=== PATIENT | female | born 1955 | race Caucasian/White ===

== ENCOUNTER 2017-04-27 13:54 | Emergency (ER) | payer OTHER ==
[~2017-04-27] VITALS: Ht 165.1 cm; Wt 90.7 kg
[~2017-04-27 13:54] MED LIST: BLM PO; CELEBREX200 MG PO; CLEOCIN HCL150 MG PO; FLEXERIL10 MG PO; FLU VACCINE 0.0.5 ML IM; GUAIFENESIN-COD10 ML PO; IBUPROFEN800 MG PO; MEDROL4 M2 PO; MELOXICAM15 MG PO; NOVAPLUS FE50 MCG/HR TOP; PROAIR HFA8.5 GM INH; TESSALON PERLE100 M1 PO; TORADOL10 MG PO; VICODIN5-300 PO; ZITHROMAX250 M2 PO; ZOFRAN 4 MG TABL4 MG PO; [UNRECOGNIZED DRUG - OTHER] PO
[2017-04-27 14:06] VITALS: BP 161/78
[2017-04-27] MEDS ORDERED: IBUPROFEN800 M1 PO (14:58)
[2017-04-27] MEDS ORDERED: NAPROSYN500 M1 PO (15:01)
--- NOTE | 2017-04-27 15:01 | ED GENERAL ADULT ---
History of Present Illness General Chief Complaint: Low Back Pain/Injury Stated Complaint: HIP/BACK PAIN Source: patient Exam Limitations: no limitations Vital Signs & Intake/Output Vital Signs & Intake/Output Vital Signs Date Time Temp Pulse Resp B/P B/P Pulse O2 O2 Flow FiO2 Mean Ox Delivery Rate 04/27 1406 97.1 85 16 161/78 97 Room Air Allergies Coded Allergies: Penicillins (Intermediate, FAINT, GI UPSET 12/25/15) Triage Note: PT STATES THAT SHE HAS CHRONIC LOW BACK AND HIP PAIN AND THAT SHE WAS AT PHYSICAL THERAPY AND THEY WERE TRYING TO STRETCH HER , AND THE LOW BACK L HIP PAIN BECAME UNBEARABLE. PT TAKES MOTRIN FOR PAIN WITH NO RELIEF. IS DUE TO HAVE INJECTIONS IN HER JOINTS IN BUT THE PAIN IS TO MUCH. STATES THAT SHE DOES NOT WANT NARCOTICS BUT NEEDS SOMETHING MORE THAN MOTRIN Triage Nurses Notes Reviewed? 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 Reports sharp left low back pain that radiates into the left hip/buttock/leg. Has been using ibuprofen without relief. Is managed by an orthopedic doctor out of [place] and is scheduled for back injections in June. Pt is requesting an IM dose of Toradol as she has had this with good effect in the past. Denies fevers, IV drug use, saddle anesthesias, urinary/bowel incontinence/retention. (EFREN GOODRICH,NEHEMIAS) Reconcile Medications Ibuprofen 800 MG TABLET 1 TAB PO BID PAIN (Reported) Naproxen (Naprosyn) 500 MG TABLET 1 TAB PO BID PRN back pain (FREDERICK HARTLEY,LATOYA) Past History Travel History Traveled to [place] past 21 day No Medical History Any Pertinent Medical History? 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 No (NEHEMIAS SCHWARTZ PA-C) Review of Systems Review of Systems Constitutional: Reports: no symptoms. EENTM: Reports: no symptoms. Respiratory: Reports: no symptoms. Cardiovascular: Reports: no symptoms. GI: Reports: no symptoms. Genitourinary: Reports: no symptoms. Musculoskeletal: Reports: back pain. Denies: neck pain. Skin: Reports: no symptoms. Neurological/Psychological: Reports: no symptoms. Hematologic/Endocrine: Reports: no symptoms. Immunologic/Allergic: Reports: no symptoms. (NEHEMIAS SCHWARTZ PA-C) Physical Exam Physical Exam General Appearance: well developed/nourished, no apparent distress, alert, awake , comfortable Head: atraumatic Eyes: Bilateral: normal appearance. Neck: normal inspection, supple, full range of motion, no midline tenderness Respiratory: normal breath sounds, lungs clear Cardiovascular: regular rate/rhythm, normal peripheral pulses Back: normal inspection, normal range of motion, no vertebral tenderness, tenderness to palpation over the left low back muscles, negative straight leg raise, bilateral lower extremities are NV intact Neurologic/Psych: no motor/sensory deficits, awake, alert, oriented x 3, normal gait, normal mood/affect Skin: intact, normal color, warm/dry Core Measures ACS in differential dx? No CVA/TIA Diagnosis: No Severe Sepsis Present: No Septic Shock Present: No (NEHEMIAS SCHWARTZ PA-C) Progress Differential Diagnoses I considered the following diagnoses in my evaluation of the patient: [Sciatica versus disc herniation versus musculoskeletal strain versus cauda equina versus abscess] Plan of Care: Current Medications Sig/Mary Start time Last Medication Dose Stop Time Status Admin Ketorolac 60 MG ONCE ONE 04/27 1500 AC Tromethamine 04/27 1501 (Toradol) IM Toradol and discharged with Rx naproxen. Instructed to follow-up with her orthopedic doctor for further evaluation. (NEHEMIAS SCHWARTZ PA-C) Initial ED EKG: none (NEHEMIAS SCHWARTZ PA-C) Departure Departure Disposition: HOME OR SELF CARE Condition: Stable Clinical Impression Primary Impression: Low back pain Referrals: GEM HARTLEY,KADIE Felix (PCP/Family) Additional Instructions: Take 500 mg of naproxen twice a day with meals as needed for back pain. Follow- up with your orthopedic doctor as scheduled. Return to the ER for any new or worsening symptoms. Departure Forms: Customer Survey General Discharge Information (EFREN GOODRICH,NEHEMIAS) Departure Prescriptions: Current Visit Scripts Naproxen (Naprosyn) 1 TAB PO BID PRN back pain #60 TAB PA/[employer] Co-Sign Statement Statement: ED Attending supervision documentation- [] I saw and evaluated the patient. I have also reviewed all the pertinent lab results and diagnostic results. I agree with the findings and the plan of care as documented in the PA's/[employer]'s documentation. [X] I have reviewed the ED Record and agree with the PA's/[employer]'s documentation. [] Additions or exceptions (if any) to the PAs/[employer]'s note and plan are summarized below: [] (FREDERICK HARTLEY,LATOYA) Critical Care Note Critical Care Note Critical Care Time: non-applicable (EFREN GOODRICH,NEHEMIAS)
== END 2017-04-27 15:09 ==
LOC: ERH 13:54
DX: M54.5 Low back pain (principal)
CPT/HCPCS: 96372; J1885

== ENCOUNTER 2017-11-14 02:46 | Inpatient (IN) | payer OTHER ==
[~2017-11-14] VITALS: Ht 165.1 cm; Wt 109.8 kg
[~2017-11-14 02:46] MED LIST changes: +CALCIUM600 M3 PO; +CIPRO500 M1 PO; +DULOXETINE HCL30 MG; +HYDROMORPHONE HC2 M1 PO; +IBUPROFEN800 M1 PO; +IRON325 M3 PO; +MAGNESIUM500 M2 PO; +NAPROSYN500 M1 PO; +PYRIDIUM200 M1 PO; +TURMERIC500 M2 PO; +VITAMIN D250000 UNIT PO; +[UNRECOGNIZED DRUG - OTHER] PO
--- NOTE | 2017-11-14 13:38 | Admission Core Measures ---
Acute Coronary Syndrome (CM) ACS Core Measures Acute Coronary Syndrome Diagnosis No Congestive Heart Failure (NEW) CHF Core Measures Congestive Heart Failure Diagnosis No Cerebrovascular Accident (NEW) CVA Core Measures CVA/TIA Diagnosis No Venous Thromboembolism VTE Core Dahlia (View Protocol) VTE Risk Factors Surgery No Mechanical VTE Prophylaxis d/t N/A MechProphylax Ordered No VTE Pharm Prophylaxis d/t NA PharmProphylax ordered Problem List As ranked by this Provider includes Assessment & Plan 1. Unilateral primary osteoarthritis, left hip 2. Status post total hip replacement, left HOME MEDS Home Med List Calcium (Elemental-Fr Calcarb) (Calcium) (Unknown Strength) TABLET (Unknown Dose) PO EOD SUPPLEMENT (Reported) Ergocalciferol (Vitamin D2) (Vitamin D2) 50,000 UNIT CAPSULE 1 CAP PO QFRI SUPPLEMENT (Reported) Ferrous Sulfate (IRON) (Unknown Strength) TABLET (Unknown Dose) PO AD SUPPLEMENT (Reported) Hydromorphone HCl 2 MG TABLET 1 TAB PO 4 TIMES/DAY PRN PAIN (Reported) Ibuprofen 800 MG TABLET 1 TAB PO TID PRN PAIN/INFLAMMATION (Reported) [IMMUNE SUPPLEMENT] (Unknown Strength) (Unknown Dose) PO EOD SUPPLEMENT ( Reported) Magnesium Oxide (Magnesium) (Unknown Strength) CAPSULE (Unknown Dose) PO EOD SUPPLEMENT (Reported) Turmeric Root Extract (Turmeric) (Unknown Strength) CAPSULE (Unknown Dose) PO EOD SUPPLEMENT (Reported)
--- NOTE | 2017-11-14 13:45 | Surgical Discharge Summary ---
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 Family Services at Home: None What is Your Primary Language? Serbian Review of Systems: Refer to H&P Hospital Course Course Attending Physician: Adolph Smith MD Primary Care Physician: Gloria HARTLEY,Kenia Felix Hospital Course: Patient was admitted to the hospital for an elective left total hip replacement with Dr. Smith. Procedure was tolerated well and patient was transferred to a general surgical floor. Diet was advanced and tolerated. Physical therapy performed evaluation and treatment. At time of hospital discharge, vital signs were stable, neurovascular status was intact and pain was controlled with the use of oral pain medications. Complications: None Allergies: Coded Allergies: nickel (RASH 11/10/17) Penicillins (Intermediate, FAINTED, VOMITING AND HOSPITALIZED 08/18/17) Significant Procedures: Left total hip replacement on 11/14/17 Disposition Summary Disposition Principal Diagnosis: Primary osteoarthritis, left hip Additional Diagnosis: Same s/p left total hip replacement Discharge Disposition: SNF Discharge Instructions General Discharge Information Code Status: Full Code Patient's Diet: Regular diet Patient's Activity: WBAT, rolling walker assistance Follow-Up Instructions/Appts: 6 weeks with staple removal around post-op day#14 Medications at Discharge Discharge Medications: Stop taking the following medications: Hydromorphone HCl (Hydromorphone HCl) 2 MG TABLET ORAL 4 TIMES A DAY as needed for PAIN Qty = 30 Ibuprofen (Ibuprofen) 800 MG TABLET ORAL THREE TIMES DAILY as needed for PAIN/ INFLAMMATION Qty = 90 Continue taking these medications: Ergocalciferol (Vitamin D2) (Vitamin D2) 50,000 UNIT CAPSULE 1 Capsule ORAL EVERY SUNDAY Qty = 6 Calcium (Elemental-Fr Calcarb) (Calcium) (Unknown Strength) TABLET Unknown Dose ORAL Every other day Magnesium Oxide (Magnesium) (Unknown Strength) CAPSULE Unknown Dose ORAL Every other day [IMMUNE SUPPLEMENT] (Unknown Strength) Unknown Dose ORAL Every other day Turmeric Root Extract (Turmeric) (Unknown Strength) CAPSULE Unknown Dose ORAL Every other day Ferrous Sulfate (IRON) (Unknown Strength) TABLET Unknown Dose ORAL As Directed Start taking the following new medications: Apixaban (Eliquis) 2.5 MG TABLET 2.5 Milligram ORAL TWICE DAILY Days = 42 No Refills Instructions: take for 6weeks Celecoxib (Celebrex) 200 MG CAPSULE 400 Milligram ORAL DAILY Days = 20 No Refills Hydromorphone HCl (Hydromorphone HCl) 2 MG TABLET 1-2 Tablet ORAL EVERY 4 HOURS NEEDED as needed for POSTOP PAIN Days = 3 No Refills Docusate Sodium (Docusate Sodium) 100 MG CAPSULE 100 Milligram ORAL TWICE DAILY Days = 7 No Refills Polyethylene Glycol 3350 (Miralax) 17 GRAM/DOSE POWDER 17 Gram ORAL DAILY as needed for CONSTIPATION Days = 7 No Refills Morphine Sulfate (Morphine Sulfate ER) 15 MG TABLET.ER 15 Milligram ORAL TWICE DAILY Qty = 4 No Refills Copies To: Gloria HARTLEY,Kenia Felix
--- NOTE | 2017-11-14 13:50 | Patient Discharge Instructions ---
Discharge Instructions General Discharge Information You were seen/treated for: Left hip pain, osteoarthritis You had these procedures: Left total hip replacement on 11/14/17 Watch for these problems: Increasing pain despite the use of pain medication Increasing redness, warmth or swelling Drainage of any type from incision Inability to bear weight on operative leg Persistent nausea and vomiting Fever greater than 101.5 degrees Call Surgeon to remove: Mariza (around post-op day#14) No bath, but you may shower: Yes Other wound care: Please keep wound clean and dry. No ointments or lotions of any type on or near incision. Your dressing will be changed on the second day after your surgery. Daily dry dressing changes are recommended each day thereafter. Do not soak your wound- no tub baths/swimming. You may shower 48hr after surgery. Special Instructions: Take Eliquis (apixaban) for 6 weeks to prevent postop blood clot formation. Diet Continue normal diet: Yes Activity Full Activity/No Limits: No Activity Self Limited: Yes Activity Limited to: Weight bear as tolerated Other activity limits: Use assistive devices as needed. Additional ACTIVITY Info: total hip precautions Acute Coronary Syndrome Inclusion Criteria At DC or during hospital stay patient has or had the following: ACS DIAGNOSIS No Discharge Core Measures Meds if any: Prescribed or Continued at Discharge Meds if any: NOT Prescribed or Continued at Discharge Congestive Heart Failure Inclusion Criteria At DC or during hospital stay patient has or had the following: CHF DIAGNOSIS No Discharge Core Measures Meds if any: Prescribed or Continued at Discharge Meds if any: NOT Prescribed or Continued at Discharge Cerebrovascular accident Inclusion Criteria At DC or during hospital stay patient has or had the following: CVA/TIA Diagnosis No Discharge Core Measures Meds if any: Prescribed or Continued at Discharge Meds if any: NOT Prescribed or Continued at Discharge Venous thromboembolism Inclusion Criteria VTE Diagnosis No VTE Type NONE VTE Confirmed by (Test) NONE Discharge Core Measures - Per Current guidelines, there needs to be overlap - treatment for the first 5 days of Warfarin therapy. - If discharged on Warfarin prior to 5 days of - overlap therapy, the patient will need to be - assessed for post discharge needs including - *Post discharge parental anticoagulation - *Warfarin and/or parental anticoagulation education - *Follow up date to check INR post discharge At least 5 days overlap therapy as Inpatient No Meds if any: Prescribed or Continued at Discharge Note: Overlap Therapy is Warfarin and Anticoagulant Meds if any: NOT Prescribed or Continued at Discharge
--- NOTE | 2017-11-14 14:58 | Operative Report ---
Operative/Inv Procedure Report Surgery Date: 11/14/17 Name of Procedure: Left Total hip arthroplasty Pre-Operative Diagnosis: Primary osteoarthritis left hip Post-Operative Diagnosis: Same Estimated Blood Loss: scant (250 CC) Surgeon/Administrative Assistant Office Manager: Vladimir Smith MD,Adolph Wong Anesthesia: general endotracheal tube IV Fluids: See anesthesia record Implants: Samantha total hip system with a Accolade 2 femoral stem size 7 with a 127 neck angle, a 54 acetabular shell. A 36 mm head 0 neck length Specimens: Left femoral head Complications: None Condition: Stable Operative Indication: Patient's a 62-year-old female with severe osteoarthritis of the left hip. She fail conservative treatment is indicated for left total hip arthroplasty. Risks and benefits the procedure were discussed with the patient detail in the office and she wished to proceed. Skilled set hands was necessary provided by physician medical records assistant Vladimir Manjarrez weighted with retraction and positioning component assembly throughout the case. Operative/Procedure Note Note: Once informed consent was obtained and the correct limb was identified patient brought to operative room placed on table supine position. After initiation of general endotracheal anesthesia patient placed in a right lateral decubitus position on the pegboard with an axillary roll in place and all bony prominences well-padded. A Gómez catheter had been placed. The left lower from his prepped and draped in usual sterile fashion. To begin the procedure standard incision for posterior superior approach to the hip was made. Sharp dissection was carried down through the skin and subcutaneous tissue. Sharp dissection was then used to split the gluteus soheila fascia in line with its bipennate junction fibers. To deep retractors were placed deep to the gluteus medius and around the femoral neck. The piriformis tendon was identified and released and tagged for later repair. Next the gluteus minimus was identified and a retractors placed deep to the gluteus minimus. A superior capsulotomy was performed and tagged for later repair. The hip was dislocated. A previous removed from the femoral neck and a femoral neck cut was made 1 fingerbreadth above the lesser trochanter. Femoral head was passed off as specimen. An anterior acetabular and inferior acetabular retractors were placed. Pulmonology removed from acetabulum. We then began reaming the acetabulum with a 45 reamer. We reamed sequentially up to a size 53 reamer. We trialed a 54 acetabular which was found to have an excellent fit. A size 54 acetabular shell was opened and placed into the acetabulum using a good press-fit technique. No screws were necessary for fixation. The liner for the total hip was opened and locked into place. Attention was then turned to the femur. The femur was placed in internal rotation and a box osteotome was used remove lateral femoral neck and into the femoral canal. Starting reamer was then placed on the femoral canal. We then began broaching with a 0 broach. We broached up to a size 7 broach. The size 7 broach was left in place and a trial reduction was done with a 36 mm head and standard neck length. Hip was relocated quite easily and taken through a range of motion hip was stable in 90 of flexion and 90 of flexion with 30 of internal rotation and 30 of abduction. Leg lengths are equal. Hip was redislocated and the components removed. The femoral canal was pulse lavaged and a size 7 Accolade 2 127 neck angle was opened and press-fit down the femoral canal without, patient. A standard neck length 36 mm head was opened and locked onto the component. The hip was relocated and taken through range of motion. Was found to be stable again. Next the superior capsule and piriformis were repaired back to the trochanter. Hip was pulse lavaged. The fascia was then closed with a running #1 looped PDS suture. The deep tissues were closed # 1 Vicryl inverted sutures and the subcutaneous tissues closed with 2-0 Vicryl sutures. The skin was closed anthony and sterile dressing was applied. The patient was awakened taken recovery in stable condition.
--- NOTE | 2017-11-14 15:48 | RADIOLOGY REPORT ---
EXAMINATION: XR HIP, LEFT CLINICAL INFORMATION: Left hip replacement. COMPARISON: None TECHNIQUE: An AP view of the left hip. FINDINGS: A left hip replacement is intact with expected subcutaneous gas. IMPRESSION: Intact left hip replacement with expected postoperative appearance.
[2017-11-14 16:25] VITALS: BP 152/68
--- NOTE | 2017-11-14 17:44 | PN- Orthopedic ---
Subjective Subjective: Post op check: Pt reporting burning sensation to incision site. Denies chest pain, shortness of breath and difficulty breathing. Denies nausea and vomitting. Has yet to ambulate. Objective Vital Signs and I&Os Vital Signs Date Time Temp Pulse Resp B/P B/P Pulse O2 O2 Flow FiO2 Mean Ox Delivery Rate 11/14 1625 97.7 62 16 152/68 100 Nasal 4.0L Cannula Physical Exam: General: Alert and oriented x3, no acute distress Cardiac: RRR, s1s2 Pulm: CTA bilaterally Abd: Soft, non-tender, non-distended Extremities: Moves all extremities, distal sensation intact. Skin warm and well perfused. DP pulses palpable. Bilaterla calves soft and non-tender. Surgical site: Left hip. Imani incisional tenderness. Thigh compartment soft. Dressing dry and intact. No drain in place. Assessment/Plan Assessment/Plan This is a 62 year old female, POD 0, s/p L THR, posterior approach -Abduction pillow in place -ALPS for dvt ppx mechanical -Eliquis 2.5 bid to start tomorrow am -OOB with PT, WBAT -Vanc q12 x 1 additional dose for abx ppx -Dressing to be changed POD 2 -Add atc offirmev for pain, encouraged RN to give po vs strictly iv narcotics, has dilaudid ordered -Regular diet as tolerated -HLIV when tolerating adequate po -DC monroy catheter tomorrow am Will discuss with Dr. Smith Core Measures Venous Thromboembolism VTE Risk Factors Surgery No Mechanical VTE Prophylaxis d/t N/A MechProphylax Ordered No VTE Pharm Prophylaxis d/t NA PharmProphylax ordered
[2017-11-14 18:47] VITALS: BP 130/70
[2017-11-14 20:00] VITALS: BP 142/70
[2017-11-15 00:30] VITALS: BP 144/54
[2017-11-15 04:21] VITALS: BP 134/58
[2017-11-15 08:00] VITALS: BP 146/62
--- NOTE | 2017-11-15 08:17 | PN- Orthopedic ---
Subjective Subjective: No acute overnight events reported. Pt states that pain is poorly controlled presently. She points to the latereal aspect of thigh from incision to knee as the most painful. She denies chest pain, shortness of breath and difficulty breathing. She denies nausean and vomitting. She is tolerating adequate po. She has yet to ambulate. She has monroy catheter in place still. Objective Vital Signs and I&Os Vital Signs Date Time Temp Pulse Resp B/P B/P Pulse O2 O2 Flow FiO2 Mean Ox Delivery Rate 11/15 0421 98.0 85 18 134/58 95 Nasal Cannula 11/15 0030 98.9 86 18 144/54 95 Nasal Cannula 11/15 0000 Nasal 2.0L Cannula 11/14 1999 98.2 71 19 142/70 97 Nasal 2.0L Cannula 11/14 1847 98.1 83 20 130/70 95 Nasal 2.0L Cannula 11/14 1625 Nasal 2.0L Cannula 11/14 1625 97.7 62 16 152/68 100 Nasal 4.0L Cannula Intake & Output 11/15 1600 11/15 0800 11/15 0000 11/14 1600 11/14 0800 11/14 0000 Intake Total 1135 Output Total 400 175 Balance 735 -175 Intake, IV 655 Intake, Oral 480 Number 0 Bowel Movements Output, Urine 400 175 Patient 242 lb Weight Physical Exam: Genereal: Alert and oriented x3, no acute distress Cardiac: RRR, s1s2 Pulm: CTA, on nasal cannula presently Abd: Non-tender, non-distneded Extremities: Moves all extremities, distal sensation grossly intact. Skin warm and well perfused. DP pulses palpable bialterlly. Abduction pillow in place. No obvious rotational deformity or shortening of operative leg. ALPS in place. Bilateral calves soft and nontennder. Dressing dry and intact. Bruising noted to thigh area, thigh compartment remains soft. Assessment/Plan Assessment/Plan This is a 62 year old female, POD 1, s/p L THR -Incentive spirometry, wean O2 -OOB. Ambulate. WBAT. -Added MS Contin 15 bid for pain, decreased IV morphine for breakthrough from 4 mg to 2 mg -No toradol added due to eliquis and celebrex orders -DC iv fluids -DC monroy catheter Follow up labs Dressing to be changed tomorrow Core Measures Venous Thromboembolism VTE Risk Factors Surgery No Mechanical VTE Prophylaxis d/t N/A MechProphylax Ordered No VTE Pharm Prophylaxis d/t NA PharmProphylax ordered
[2017-11-15 08:27] LABS: ABSOLUTE BASOPHIL COUNT 0.1 /CUMM (0.0-0.2); ABSOLUTE EOSINOPHIL COUNT 0 /CUMM (0.0-0.7); ABSOLUTE GRANULOCYTE CT 11.7 /CUMM (1.4-6.5); ABSOLUTE LYMPH COUNT 1.7 /CUMM (1.2-3.4); ABSOLUTE MONOCYTE COUNT 1.5 /CUMM (0.10-0.60); BASOPHIL % 0.4 % (0.0-2.0); EOSINOPHIL % 0 % (0-5); HEMATOCRIT 31.5 % (37-47); MEAN CORPUSCULAR HGB 30.1 PG (27.0-31.0); MEAN CORPUSCULAR VOLUME 88.5 FL (81.0-99.0); MEAN PLATELET VOLUME 9.6 FL (7.4-10.4); PLATELET COUNT 189 /CUMM (130-400); RBC DISTRIBUTION WIDTH 14.5 % (11.5-14.5); RED BLOOD CELL CT 3.56 /CUMM (4.20-5.40)
[2017-11-15 14:54] VITALS: BP 122/50
[2017-11-15 22:21] VITALS: BP 136/40
[2017-11-16 07:16] VITALS: BP 136/48
--- NOTE | 2017-11-16 08:13 | PN- Orthopedic ---
See Addendum Subjective Subjective: Still with complaints of severe pain in the left hip, a little better than yesterday. Trouble ambulating, trouble getting out of bed to get bathroom, she feels as though she will require short-term rehabilitation. She denies any fever or flulike illness. Objective Vital Signs and I&Os Vital Signs Date Time Temp Pulse Resp B/P B/P Pulse O2 O2 Flow FiO2 Mean Ox Delivery Rate 11/16 0716 98.4 84 18 136/48 92 11/15 2221 98.6 77 18 136/40 95 Room Air 11/15 1454 98.1 85 20 122/50 93 Room Air 11/15 1055 Nasal 2.0L Cannula Intake & Output 11/16 1600 11/16 0800 11/16 0000 11/15 1600 11/15 0800 11/15 0000 Intake Total 480 035 488 9360 Output Total 1050 650 250 400 175 Balance -570 -170 250 735 -175 Intake, IV 100 655 Intake, Oral 480 480 400 480 Number 0 0 Bowel Movements Output, Urine 1050 650 250 400 175 Patient 242 lb Weight Physical Exam: Well-developed well-nourished no apparent distress. HEENT: Atraumatic, extraocular motion intact Neck: Supple, no lymphadenopathy Respiratory: No respiratory distress Extremities: No edema Left lower extremity hip dressing in place, Dressing clean dry and intact with minimal bloody staining Incision without erythema Mild thigh swelling No signs of infection. No shortening or rotation Hip range of motion is limited and without unexpected pain Neurovascularly intact distally Bilateral calves are supple, nontender. Neuro: Alert and oriented x3 Psych: Mood affect normal, normal memory normal judgment. Skin: Warm and dry, no rash on exposed skin Assessment/Plan Assessment/Plan Postop day #2 status post left total hip arthroplasty Pain medication as needed. We will increase Dilaudid from 2-4 mg to 4-6 mg as needed for moderate to severe pain Out of bed Physical therapy, weightbearing as tolerated Regular diet Continue Eliquis for DVT prophylaxis ALPS for DVT prophylaxis Regular home meds Dressing change daily, done today, dry sterile dressing Plan for short-term rehabilitation likely tomorrow Core Measures Venous Thromboembolism VTE Risk Factors Surgery No Mechanical VTE Prophylaxis d/t N/A MechProphylax Ordered No VTE Pharm Prophylaxis d/t NA PharmProphylax ordered
[2017-11-16 13:58] VITALS: BP 140/52
[2017-11-16 21:41] VITALS: BP 130/60
[2017-11-17 06:21] VITALS: BP 110/44
[2017-11-17] MEDS ORDERED: HYDROMORPHONE HC2 M1 PO (06:44)
[2017-11-17] MEDS ORDERED: DOCUSATE SODIU100 M3 PO (06:44)
[2017-11-17] MEDS ORDERED: CELEBREX200 M1 PO (06:44)
[2017-11-17] MEDS ORDERED: ELIQUIS2.5 M1 PO (06:44)
[2017-11-17] MEDS ORDERED: MIRALAX119 GM PO (06:44)
[2017-11-17] MEDS ORDERED: MORPHINE SULFAT15 M3 PO (06:46)
--- NOTE | 2017-11-17 09:17 | PN- Orthopedic ---
See Addendum Subjective Subjective: feeling ok, some pain controlled w po meds. did have o2sat in 80s this am on RA , denies sob/cp. Placed on 2L NC, back to mid 90s. Per pt, she does have dx ALEXA and does not use cpap, and has not been using IST. tolerating diet, no n/v. +voids. awaiting BM Objective Vital Signs and I&Os Vital Signs o2 sat rechecked now: on 2L nc: 94% on RA at rest with deep breathin% Date Time Temp Pulse Resp B/P B/P Pulse O2 O2 Flow FiO2 Mean Ox Delivery Rate 11/17 0715 85 Room Air 11/17 0621 98.9 91 20 110/44 92 11/16 2141 98.3 78 20 130/60 93 Room Air 11/16 1930 98.6 11/16 1358 99.0 89 20 140/52 91 Room Air Intake & Output 11/17 1600 11/17 0800 11/17 0000 11/16 1600 11/16 0800 11/16 0000 Intake Total 120 240 550 480 480 Output Total 500 383 053 6895 650 Balance -380 -60 250 -570 -170 Intake, IV 50 Intake, Oral 120 240 500 480 480 Number 0 Bowel Movements Output, Urine 500 575 106 7046 650 Physical Exam: gen: nad card- s1s2 rrr pulm- ctab abd- soft nt ext- L hip dressing cdi, ice in place, nt. calves soft nt bl. +sensate bl. + dorsi/plantar flexion bl. palp pedal pulses bl. Current Medications: Current Medications Sig/Mary Start time Last Medication Dose Route Stop Time Status Admin Apixaban 2.5 MG BID 11/15 1000 AC 11/16 PO 2036 Bisacodyl 10 MG ONCE ONE 11/17 0700 DC ND 11/17 0701 Celecoxib 400 MG DAILY 11/15 1000 AC 11/16 PO 1204 Docusate Sodium 100 MG BID 11/14 2200 AC 11/16 PO 2036 Hydromorphone HCl 4 MG Q4P PRN 11/16 08 AC PO Hydromorphone HCl 6 MG Q4P PRN 11/16 0815 AC 11/17 PO 0059 Morphine Sulfate 15 MG BID 11/15 1000 AC 11/16 PO 2037 Morphine Sulfate 2 MG Q3P PRN 11/14 1645 AC 11/16 IV 1200 Nicotine 7 MG DAILY 11/15 1000 AC 11/16 TOP 1204 Polyethylene Glycol 17 GM DAILY 11/15 1000 AC 11/16 PO 1204 Senna/Docusate Sodium 2 TAB AT BEDTIME NEED.. 11/14 1645 AC 11/17 PO 0059 Assessment/Plan Assessment/Plan A- POD3 sp L JUSTO, with increased o2 demand this am, though o2 sat improved with deep breathing and now mid-90s on RA, otherwise stable, planning for STR transition today P- po pain meds dvt ppx: eliquis 2.5bid, alps oob, pt, wbat reg diet dc planning will dw attending Core Measures Venous Thromboembolism VTE Risk Factors Surgery No Mechanical VTE Prophylaxis d/t N/A MechProphylax Ordered No VTE Pharm Prophylaxis d/t NA PharmProphylax ordered
[2017-11-17 16:04] VITALS: BP 128/72
[2017-11-17 21:56] VITALS: BP 132/48
[2017-11-17 22:02] VITALS: BP 128/58
[2017-11-18 01:29] VITALS: BP 122/52
[2017-11-18 06:58] VITALS: BP 112/54
--- NOTE | 2017-11-18 07:47 | PN- Orthopedic ---
See Addendum Subjective Subjective: Has multiple complaints, including no appetite and poor PO intake, shortness of breath even while in bed, "low blood pressure", and pain/swelling of her left hip surgical site and surrounding area. She believes medications may be affecting her appetite. "My urine is dark", but tolerating some clears. No dysuria. She had a bm yesterday and is passing flatus. Although she reports she had abdominal pain, she currently does not. Some dizziness even while lying in bed. Some shortness of breath, which she describes as not her baseline - although she is a current "social" smoker. She has reported hx sleep apnea but does not use cpap. She states her blood pressure is normally "120s-130s/80s", so she is concerned about the low diastolic bp trends post-op. Objective Vital Signs and I&Os Vital Signs Date Time Temp Pulse Resp B/P B/P Pulse O2 O2 Flow FiO2 Mean Ox Delivery Rate 11/18 0658 98.2 78 20 112/54 97 11/18 0129 98.2 80 20 122/52 98 11/17 2202 128/58 11/17 2156 98.1 85 20 132/48 92 11/17 1604 98.1 87 18 128/72 93 Room Air 11/17 0800 Room Air Intake & Output 11/18 0800 11/18 0000 11/17 1600 11/17 0800 11/17 0000 11/16 1600 Intake Total 120 600 120 240 550 Output Total 200 500 300 300 Balance 120 400 -380 -60 250 Intake, IV 50 Intake, Oral 120 600 120 240 500 Number 1 3 0 Bowel Movements Output, Urine 200 500 300 300 Physical Exam: General - alert & oriented x 3. comfortable. no acute distress. Lungs - clear. decreased breath sounds b/l bases. Cardiac - s1s2. reg. Abdomen - soft. bowel sounds appreciated. nontender. Extremities - warm bilaterally. expected post-operative swelling and tenderness to the left thigh. dressing saturated with serous drainage. no exudates or dalton- incisional erythema. calves soft and nontender. nvi. Current Medications: Current Medications Sig/Mary Start time Last Medication Dose Route Stop Time Status Admin Apixaban 2.5 MG BID 11/15 1000 AC 11/17 PO 2117 Celecoxib 400 MG DAILY 11/15 1000 AC 11/17 PO 1033 Diphenhydramine HCl 1 MARIXA Q8P PRN 11/17 2015 AC 11/17 TOP 2125 Docusate Sodium 100 MG BID 11/14 2200 AC 11/17 PO 211 Fluticasone 2 SPRAY DAILY 11/18 1000 AC Propionate JOSE Hydromorphone HCl 4 MG Q4P PRN 11/16 0815 AC PO Hydromorphone HCl 6 MG Q4P PRN 11/16 0815 AC 11/17 PO 1955 Morphine Sulfate 15 MG BID 11/15 1000 AC 11/17 PO 211 Morphine Sulfate 2 MG Q3P PRN 11/14 1645 AC 11/17 IV 1445 Nicotine 7 MG DAILY 11/15 1000 AC 11/17 TOP 1032 Polyethylene Glycol 17 GM DAILY 11/15 1000 AC 11/17 PO 1033 Senna/Docusate Sodium 2 TAB AT BEDTIME NEED.. 11/14 164 AC 11/17 PO 0059 Assessment/Plan Assessment/Plan This 62 year old female with hx obesity, jess (does not use cpap), htn, hld, cad, now POD#4 s/p L THR, with multiple complaints including decreased appetite / poor PO intake, shortness of breath, dizziness, with subjective concerns about her diastolic blood pressure "too low" apparently has poor appetite, but seems to be drinking and tolerating some food pain medication as ordered will check labs will check cxr orthostatic vitals IST / TRC dressing changed continue PT eliquis bid - dvt ppx bowel regime ordered her PCP is , so will d/w covering hospitalist for consult () likely d/c to str once bed is available will d/w Core Measures Venous Thromboembolism VTE Risk Factors Surgery No Mechanical VTE Prophylaxis d/t N/A MechProphylax Ordered No VTE Pharm Prophylaxis d/t NA PharmProphylax ordered
[2017-11-18 08:14] LABS: ABSOLUTE BASOPHIL COUNT 0.1 /CUMM (0.0-0.2); ABSOLUTE EOSINOPHIL COUNT 0.3 /CUMM (0.0-0.7); ABSOLUTE GRANULOCYTE CT 5.6 /CUMM (1.4-6.5); ABSOLUTE LYMPH COUNT 2.2 /CUMM (1.2-3.4); ABSOLUTE MONOCYTE COUNT 0.7 /CUMM (0.10-0.60); BASOPHIL % 0.8 % (0.0-2.0); EOSINOPHIL % 3.3 % (0-5); GRANULOCYTE % 62.9 % (42.2-75.2); MEAN CORPUSCULAR HGB 29.5 PG (27.0-31.0); MEAN CORPUSCULAR HGB CONC 33.6 G/DL (33.0-37.0); MEAN CORPUSCULAR VOLUME 88.1 FL (81.0-99.0); MEAN PLATELET VOLUME 8.2 FL (7.4-10.4); PLATELET COUNT 257 /CUMM (130-400); RBC DISTRIBUTION WIDTH 14.1 % (11.5-14.5); RED BLOOD CELL CT 3.41 /CUMM (4.20-5.40); WHITE BLOOD CELL COUNT 8.9 /CUMM (4.8-10.8)
--- NOTE | 2017-11-18 08:47 | RADIOLOGY REPORT ---
EXAMINATION: XR PORTABLE CHEST CLINICAL INFORMATION: Status post surgery left hip. Shortness of breath. COMPARISON: 09/28/16. TECHNIQUE: Portable frontal view of the chest was obtained. FINDINGS: Linear opacity in the right perihilar region is consistent with atelectasis. The lungs are otherwise clear. The pleural spaces are clear. Heart size is normal. Calcific atherosclerotic changes in the aortic arch are stable. IMPRESSION: Linear opacity right middle lobe consistent with atelectasis. No other acute abnormality.
[2017-11-18 09:32] VITALS: BP 140/52
[2017-11-18 14:16] VITALS: BP 140/54
--- NOTE | 2017-11-18 14:52 | Cons- Medical ---
General Information and HPI Consulting Request Date of Consult: 11/18/17 Requested By: Luis HARTLEY,Adolph Wong Reason for Consult: Dizziness, not feeling well Source of Information: patient, old records Exam Limitations: no limitations History of Present Illness: 62F PMH CAD, chronic back pain, history of left hip avascular necrosis admitted to orthopedic service for left total hip replacement POD#4. Patient has had multiple complaints so medical consult was called to address them. Per nurse and surgical PA, patient had reported several complaints including dizziness, lightheadedness, decreased appetite, dark urine, nausea, pain, and concern over her low diastolic blood pressure. She had few complaints for me. She reported having chills and hot flashes two nights ago, but none since. She does report a decreased appetite since her surgery, though she tries to eat. She denies nausea, vomiting, diarrhea, or constipation. She denies dizziness to me. Her pain is well controlled on current medications, though she did refuse pain medication last night, as her diastolic BP was low, and as a result she slept poorly. She denies headache, lightheadedness, sore throat, chest pain, SOB, palpitations, abdominal pain, diarrhea, dysuria. Allergies/Medications Allergies: Coded Allergies: nickel (RASH 11/10/17) Penicillins (Intermediate, FAINTED, VOMITING AND HOSPITALIZED 08/18/17) Home Med List: Apixaban (Eliquis) 2.5 MG TABLET 2.5 MG PO BID postop anticoagulation take for 6weeks Calcium (Elemental-Fr Calcarb) (Calcium) (Unknown Strength) TABLET (Unknown Dose) PO EOD SUPPLEMENT (Reported) Celecoxib (Celebrex) 200 MG CAPSULE 400 MG PO DAILY POSTOP PAIN Docusate Sodium 100 MG CAPSULE 100 MG PO BID CONTIPATION Ergocalciferol (Vitamin D2) (Vitamin D2) 50,000 UNIT CAPSULE 1 CAP PO QFRI SUPPLEMENT (Reported) Ferrous Sulfate (IRON) (Unknown Strength) TABLET (Unknown Dose) PO AD SUPPLEMENT (Reported) Hydromorphone HCl 2 MG TABLET 1 TAB PO 4 TIMES/DAY PRN PAIN (Reported) Hydromorphone HCl 2 MG TABLET 1-2 TAB PO Q4P PRN POSTOP PAIN Ibuprofen 800 MG TABLET 1 TAB PO TID PRN PAIN/INFLAMMATION (Reported) [IMMUNE SUPPLEMENT] (Unknown Strength) (Unknown Dose) PO EOD SUPPLEMENT ( Reported) Magnesium Oxide (Magnesium) (Unknown Strength) CAPSULE (Unknown Dose) PO EOD SUPPLEMENT (Reported) Morphine Sulfate (Morphine Sulfate ER) 15 MG TABLET.ER 15 MG PO BID POSTOP PAIN Polyethylene Glycol 3350 (Miralax) 17 GRAM/DOSE POWDER 17 GM PO DAILY PRN CONSTIPATION Turmeric Root Extract (Turmeric) (Unknown Strength) CAPSULE (Unknown Dose) PO EOD SUPPLEMENT (Reported) Current Medications: Current Medications Sig/Mary Start time Last Medication Dose Route Stop Time Status Admin Apixaban 2.5 MG BID 11/15 1000 AC 11/18 PO 0910 Celecoxib 400 MG DAILY 11/15 1000 AC 11/18 PO 0911 Diphenhydramine HCl 1 MARIXA Q8P PRN 11/17 2015 AC 11/17 TOP 2125 Docusate Sodium 100 MG BID 11/14 2200 AC 11/18 PO 0910 Fluticasone 2 SPRAY DAILY 11/18 1000 AC Propionate JOSE Hydromorphone HCl 4 MG Q4P PRN 11/16 0815 AC PO Hydromorphone HCl 6 MG Q4P PRN 11/16 0815 AC 11/18 PO 1328 Morphine Sulfate 15 MG BID 11/15 1000 AC 11/18 PO 0915 Morphine Sulfate 2 MG Q3P PRN 11/14 1645 AC 11/17 IV 1445 Nicotine 7 MG DAILY 11/15 1000 AC 11/18 TOP 0911 Polyethylene Glycol 17 GM DAILY 11/15 1000 AC 11/17 PO 1033 Senna/Docusate Sodium 2 TAB AT BEDTIME NEED.. 11/14 1645 AC 11/17 PO 0059 Review of Systems Review of Systems Constitutional: Reports: no symptoms. EENTM: Reports: no symptoms. Cardiovascular: Reports: no symptoms. Respiratory: Reports: no symptoms. GI: Reports: no symptoms. Genitourinary: Reports: no symptoms. Musculoskeletal: Reports: no symptoms. Skin: Reports: no symptoms. Neurological/Psychological: Reports: no symptoms. Hematologic/Endocrine: Reports: no symptoms. Immunologic/Allergic: Reports: no symptoms. All Other Systems: Reviewed and Negative Past History Medical History Blood Transfusion Hx: No Neurological: NONE EENT: NONE Cardiovascular: CAD Respiratory: NONE Gastrointestinal: SMALL BOWEL OBSTRUCTION Hepatic: hepatitis C Renal: NONE Musculoskeletal: disk herniation, OSTEOPENIA Psychiatric: NONE Endocrine: NODULES ON THYROID Blood Disorders: NONE Cancer(s): CERVICAL CA JOB SPOTTER/Reproductive: UTERINE ABLATION Surgical History Surgical History: appendectomy, hip replacement (L 11/14/17), ANKLE SURGERY, UTERINE ABLATION Psychosocial History Where Do You Live? Home Services at Home: None Smoking Status: Current Some Day Smoker Functional Ability ADLs Independent: dressing, eating, toileting, bathing. Ambulation: independent IADLs Independent: shopping, housework, finances, food prep, telephone, transportation , medication admin. Exam & Diagnostic Data Last 24 Hrs of Vital Signs/I&O Vital Signs Date Time Temp Pulse Resp B/P B/P Pulse O2 O2 Flow FiO2 Mean Ox Delivery Rate 11/18 1416 98.1 84 20 140/54 94 Room Air 11/18 1358 Room Air 11/18 0932 90 140/52 11/18 0800 Room Air 11/18 0658 98.2 78 20 112/54 97 11/18 0129 98.2 80 20 122/52 98 11/17 2202 128/58 11/17 2156 98.1 85 20 132/48 92 11/17 1604 98.1 87 18 128/72 93 Room Air Intake & Output 11/18 1600 11/18 0800 11/18 0000 Intake Total 650 120 120 Output Total 550 Balance 100 120 120 Intake, Oral 650 120 120 Number 1 Bowel Movements Output, Urine 550 Physical Exam General Appearance: well developed/nourished, no apparent distress Head: atraumatic, normal appearance Eyes: Bilateral: normal appearance, PERRL, EOMI. Ears, Nose, Throat: normal pharynx, normal ENT inspection, hearing grossly normal Neck: normal inspection, supple Respiratory: normal breath sounds, chest non-tender, no respiratory distress Cardiovascular: regular rate/rhythm Gastrointestinal: soft, non-tender Back: normal inspection, normal range of motion Extremities: normal inspection, normal range of motion, no edema, No calf tenderness, mild swelling at incision site with clean bandage Neurologic/Psych: awake, alert, oriented x 3, normal mood/affect Skin: intact, normal color, warm/dry Lymphatic: no anterior cervical nely Last 24 Hrs of Labs/Chai: Laboratory Tests 11/18/17 0800: Anion Gap 8, Estimated GFR > 60, BUN/Creatinine Ratio 21.7, Glucose 154 H, Magnesium 2.0, CBC w Diff NO MAN DIFF REQ, RBC 3.41 L, MCV 88.1, MCH 29.5, MCHC 33.6, RDW 14.1, MPV 8.2, Gran % 62.9, Lymphocytes % 24.7, Monocytes % 8.3, Eosinophils % 3.3, Basophils % 0.8, Absolute Granulocytes 5.6, Absolute Lymphocytes 2.2, Absolute Monocytes 0.7 H, Absolute Eosinophils 0.3, Absolute Basophils 0.1 Assessment/Plan Assessment/Plan 62F PMH HTN, HLD, CAD admitted for left total hip replacement POD#4 with multiple complaints, overall well, no acute medical issues at this time. Recommendations - Continue current management - Obtain EKG - Can give 1L D5 1/2 normal saline as patient has poor PO intake - Continue current pain medications - Continue anti-coagulation - Can go to STR when bed is available Problem List: 1. Status post total hip replacement, left 2. Dizziness 3. Chills (without fever) 4. Poor appetite Copies To: Luis HARTLEY,Adolph Wong Consult Acknowledgment - Thank you for your consult request.
[2017-11-18 21:59] VITALS: BP 124/60
[2017-11-19 06:52] VITALS: BP 128/64
[2017-11-19 07:56] VITALS: BP 136/54
--- NOTE | 2017-11-19 08:22 | PN- Orthopedic ---
Subjective Subjective: feeling ok, some pain in hip, occasional mild nausea. awaiting [facility] bed assignment. no cp/sob. +void +bm Objective Vital Signs and I&Os Vital Signs Date Time Temp Pulse Resp B/P B/P Pulse O2 O2 Flow FiO2 Mean Ox Delivery Rate 11/19 0825 128/58 11/19 0756 136/54 11/19 0652 98.0 86 20 128/64 98 11/18 2159 98.7 85 20 124/60 93 Room Air 11/18 1416 98.1 84 20 140/54 94 Room Air 11/18 1358 Room Air 11/18 0932 90 140/52 Intake & Output 11/19 1600 11/19 0800 11/19 0000 11/18 1600 11/18 0800 11/18 0000 Intake Total 100 720 650 120 120 Output Total 400 500 550 Balance -300 220 100 120 120 Intake, Oral 100 720 650 120 120 Number 0 1 Bowel Movements Output, Urine 400 500 550 Physical Exam: gen- nad card- s1s2 rrr pulm- ctab abd- soft nt ext- left hip dressing cdi, ttp at incision, calves soft nt, palp pedal pulses, +sensation, +dorsi/plantar flexion Assessment/Plan Assessment/Plan A- POD5 sp L JUSTO, ortho stable, awaiting bed availability at [facility] P- continue current care prn pain meds, prn zofran eliquis bid wbat, pt dc planning Core Measures Venous Thromboembolism VTE Risk Factors Surgery No Mechanical VTE Prophylaxis d/t N/A MechProphylax Ordered No VTE Pharm Prophylaxis d/t NA PharmProphylax ordered
[2017-11-19 08:25] VITALS: BP 128/58
[2017-11-19 11:51] VITALS: BP 128/58
== END 2017-11-19 12:43 | DRG 301 ==
LOC: DELPENDDIS → SDA 02:46 → 2NB 02:46 → ENRESERV 15:49 → ENTRNSPT 15:57 → EDTRNSPT 16:15 → EDTRNSPTSTS 16:15 → 2NB 16:22 → CMPTRNSPT 16:34 → ENPENDDIS 11-17 10:06 → EDPENDDIS 11-19 08:34 → ENPENDDIS 11-19 08:54 → 2NB 11-19 12:43
PROVIDERS: Physician Assistant; Physician Assistant Surgical
PROC: 0SRB04A Replacement of Left Hip Joint with Ceramic on Polyethylene Synthetic Substitute, Uncemented, Open Approach (ICD-10-PCS; principal; 2017-11-14)
DX: M16.12 Unilateral primary osteoarthritis, left hip (principal); M25.752 Osteophyte, left hip; I25.10 Atherosclerotic heart disease of native coronary artery without angina pectoris; B19.20 Unspecified viral hepatitis C without hepatic coma; M85.80 Other specified disorders of bone density and structure, unspecified site; G89.29 Other chronic pain; M54.9 Dorsalgia, unspecified; F17.210 Nicotine dependence, cigarettes, uncomplicated; R42 Dizziness and giddiness; R68.83 Chills (without fever); R63.0 Anorexia; E66.9 Obesity, unspecified; I10 Essential (primary) hypertension; G47.33 Obstructive sleep apnea (adult) (pediatric); E78.5 Hyperlipidemia, unspecified; Z68.41 Body mass index [BMI] 40.0-44.9, adult
CPT/HCPCS: 2NBP; 36415; 36592; 71045; 73501; 82436; 87086; 97110-GO; 97116-GO; 97161-GP; 97166-GO; 97530-GO; C9399; J0131; J1100; J2405; J3370; J7040; J7060

== ENCOUNTER 2017-11-25 16:29 | Inpatient (IN) | payer OTHER ==
[~2017-11-25] VITALS: Ht 165.1 cm; Wt 113.4 kg
[~2017-11-25 16:29] MED LIST changes: +CELEBREX200 M1 PO; +DOCUSATE SODIU100 M3 PO; +ELIQUIS2.5 M1 PO; +MIRALAX119 GM PO; +MORPHINE SULFAT15 M3 PO
--- NOTE | 2017-11-25 16:33 | ED UPPER/LOWER EXTREMITY COMPL ---
History of Present Illness General Chief Complaint: General Adult Stated Complaint: S/P L HIP SURGURY, BLEEDING AT SURGICAL SITE Source: old records, EMS Exam Limitations: no limitations Vital Signs & Intake/Output Vital Signs & Intake/Output Vital Signs Date Time Temp Pulse Resp B/P B/P Pulse O2 O2 Flow FiO2 Mean Ox Delivery Rate 11/27 1349 98.5 82 20 124/40 93 Room Air 11/27 0936 18 122/52 94 Nasal 2.0L Cannula 11/27 0922 98.3 77 20 124/30 94 Room Air 11/27 0800 95 Nasal 2.0L Cannula 11/27 0619 98.5 69 20 138/60 97 Nasal 3.0L Cannula 11/27 0000 Nasal 3.0L Cannula 11/26 2215 97.9 62 18 132/70 98 Nasal 3.0L Cannula 11/26 1544 98.8 63 20 128/60 96 Room Air ED Intake and Output 11/27 0000 11/26 1200 Intake Total 600 470 Output Total Balance 600 470 Intake, IV 600 470 Intake, Oral 0 Number 0 0 Bowel Movements Allergies Coded Allergies: nickel (RASH 11/10/17) Penicillins (Intermediate, FAINTED, VOMITING AND HOSPITALIZED 08/18/17) Reconcile Medications Apixaban (Eliquis) 2.5 MG TABLET 2.5 MG PO BID postop anticoagulation take for 6weeks Calcium Carbonate (Calcium) 500 MG CALCIUM (1,250 MG) TAB.CHEW 1 TAB PO Q8H PRN GI (Reported) Celecoxib (Celebrex) 200 MG CAPSULE 400 MG PO DAILY POSTOP PAIN Docusate Sodium 100 MG CAPSULE 100 MG PO BID CONTIPATION Ergocalciferol (Vitamin D2) (Vitamin D2) 50,000 UNIT CAPSULE 1 CAP PO QFRI SUPPLEMENT (Reported) Ferrous Sulfate (IRON) (Unknown Strength) TABLET (Unknown Dose) PO AD SUPPLEMENT (Reported) Hydromorphone HCl (Dilaudid) 2 MG TABLET 1 TAB PO Q4H PRN MODERATE PAIN ( Reported) Hydromorphone HCl (Dilaudid) 4 MG TABLET 1 TAB PO Q4H PRN SEVERE PAIN ( Reported) [IMMUNE SUPPLEMENT] (Unknown Strength) (Unknown Dose) PO EOD SUPPLEMENT ( Reported) Magnesium Oxide (Magnesium) (Unknown Strength) CAPSULE (Unknown Dose) PO EOD SUPPLEMENT (Reported) Morphine Sulfate (Morphine Sulfate ER) 15 MG TABLET.ER 15 MG PO BID POSTOP PAIN Nicotine (Nicotine Patch) 7 MG/24 HOUR PATCH.TD24 1 PAT TD DAILY SMOKING CESSATION (Reported) Polyethylene Glycol 3350 (Miralax) 17 GRAM/DOSE POWDER 17 GM PO DAILY PRN CONSTIPATION Sennosides (Senna) 8.6 MG TABLET 1 TAB PO EOD CONSTIPATION (Reported) Turmeric Root Extract (Turmeric) (Unknown Strength) CAPSULE (Unknown Dose) PO EOD SUPPLEMENT (Reported) Triage Nurses Notes Reviewed? yes Onset: Abrupt Duration: week(s): (1), constant, getting worse Timing: recent history Severity: moderate Severity Numbers: 7 Pain/Injury Location: Left: Hip. No Modifying Factors: none Associated Symptoms: redness HPI: 62-year-old female status post left hip replacement on November 14 presents to the emergency room for evaluation brought in by ambulance from rehabilitation after the patient has had progressively worsening discharge redness at the site of her incision. She states symptoms began approximately one week ago and started is clear discharge that has gotten heavier and she woke up this morning and the discharge had gone through her dressings and soaked her bed. She reports to nausea and chills. No chest pain shortness of breath she is not currently on antibiotics. She's been taking Dilaudid for her pain at the rehabilitation however states that she believes it is worse than what they had told her would be expected. She denies any swelling or calf pain (Petar Umana) Past History Travel History Traveled to [place] past 21 day No Medical History Any Pertinent Medical History? see below for history Neurological: NONE EENT: NONE Cardiovascular: CAD Respiratory: NONE Gastrointestinal: SMALL BOWEL OBSTRUCTION Hepatic: hepatitis C Renal: NONE Musculoskeletal: disk herniation, OSTEOPENIA Psychiatric: NONE Endocrine: NODULES ON THYROID Blood Disorders: NONE Cancer(s): CERVICAL CA CITRIX ARCHITECT/Reproductive: UTERINE ABLATION History of MRSA: No History of VRE: No History of CDIFF: No Influenza Vaccine: 06/01/17 Surgical History Surgical History: appendectomy, hip replacement (L 11/14/17), ANKLE SURGERY, UTERINE ABLATION Psychosocial History Who do you live with Family Services at Home None What is your primary language Malay Family History Hx Contributory? No (Petar Umana) Review of Systems Review of Systems Constitutional: Reports: see HPI. Comments Review of systems: See HPI, All other systems negative. Constitutional, no chills no fever, HEENT: no sore throat no congestion Cardiovascular: No chest pain , no palpitation Skin: no rashes, no change in skin Respiratory: No dyspnea no cough no sputum GI: No nausea no vomiting, no diarrhea, no bloating/constipation : No dysuria No hematuria Muscle skeletal: joint pain, no back pain, no neck pain, Neurologic: , no headache Heme/endocrine: No bruising Immunology: No lymphadenopathy (Petar Umana) Physical Exam Physical Exam General Appearance: well developed/nourished, alert, awake Comments: Well-developed well-nourished patient in no apparent distress. HEENT: Atraumatic, extraocular motion intact Neck: Supple, FROM Back: FROM Cardiovascular: Regular rate and rhythms no murmurs rubs or gallops, Respiratory: No respiratory distress. Patient speaking in full complete sentences. Breath sounds clear to auscultation bilaterally: NO W/R/R Upper Extremities: full range of motion Hip/Pelvis: The surgical incision to the left lateral hip has erythema surrounding the anthony, there is brown discharge from the proximal incision, there is no fluctuance the incision is slightly tender with warmth, No pain with pelvic compression Knee: Atraumatic/stable. FROM. No joint swelling Leg: Atraumatic. Nontender. No edema, 5 out of 5 strength in the lower extremity, normal dorsiflexion of great toe bilaterally, gross sensation is intact Ankle/Foot: Atraumatic/stable. Skin intact. FROM. No swelling, no effusion. No laxity on exam Pulses: Normal/equal DP/PT pulses bilaterally. Brisk cap refill Neuro: awake, alert, and oriented to person, place and time. There were no obvious focal neurologic abnormalities. Skin: Warm & dry;No appreciable rash on exposed skin Psych: Mood affect normal, normal memory normal judgment. (Petar Umana) Progress Differential Diagnosis: arterial insufficiency, cellulitis, DVT, fracture, septic arthritis, sprain Plan of Care: Orders Procedure Date/time Status Regular Diet 11/27 L Active Regular Diet 11/27 B Complete CBC WITHOUT DIFFERENTIAL 11/27 0600 Complete BASIC ELECTROLYTES PLUS BUN&CR 11/27 06 Complete PT Evaluate & Treat 11/27 UNK Active EKG 11/27 UNK Active Regular Diet 11/26 D Complete TRUNK AREA OR SPEC 11/26 1932 Active TRUNK AREA OR SPEC 11/26 1930 Active INCENTIVE SPIROMETRY TRX CHG 11/26 UNK Complete Drains/Tubes 11/26 UNK Active Current Medications Sig/Mary Start time Last Medication Dose Stop Time Status Admin Apixaban 2.5 MG BID 11/28 1000 AC (Eliquis) Ciprofloxacin 400 MG Q12 11/27 2199 UNVr (Ciprofloxacin) Dextrose/Water 200 ML (D5W) Vancomycin HCl 1,500 MG BID 11/27 2199 UNir Acetaminophen 1,000 MG Q6H 11/27 0800 AC 11/27 (Ofirmev) 11/28 0214 1341 N/A 1 UNIT (No Carrier) Morphine Sulfate 2 MG Q4P PRN 11/26 2030 AC 11/27 (MORPHINE SULFATE) 1257 Docusate Sodium 100 MG BID 11/25 2199 AC 11/27 (Colace) 0915 Morphine Sulfate 15 MG BID 11/25 220 AC 11/27 (Ms Contin) 0915 Senna 187 MG AT BEDTIME 11/25 2199 AC 11/26 (Senokot) 220 Calcium Carbonate 500 MG Q8P PRN 11/25 1900 AC (TUMS) Hydromorphone HCl 2 MG Q4P PRN 11/25 1900 AC (Dilaudid) Hydromorphone HCl 4 MG Q4 HRS NEEDED PRN 11/25 1900 AC 11/27 (Dilaudid) 1341 Ondansetron HCl 4 MG Q6P PRN 11/25 1900 AC (Zofran) Nicotine 7 MG DAILY 11/25 1849 AC 11/27 (Nicotine Cq) 0915 Laboratory Tests 11/27/17 0720: Anion Gap 6, Estimated GFR > 60, BUN/Creatinine Ratio 15.7, CBC w Diff NO MAN DIFF REQ, RBC 3.13 L, MCV 88.0, MCH 29.4, MCHC 33.4, RDW 13.8, MPV 8.5, Gran % 86.2 H, Lymphocytes % 7.6 L, Monocytes % 6.2, Eosinophils % 0, Basophils % 0, Absolute Granulocytes 11.9 H, Absolute Lymphocytes 1.0 L, Absolute Monocytes 0.9 H, Absolute Eosinophils 0, Absolute Basophils 0 Microbiology 11/26 1919 TRUNK/O.R.: Culture & Sensitivity - RES GRAM NEGATIVE RODS 11/26 1919 TRUNK/O.R.: Gram Stain - RES 11/26 1919 TRUNK/O.R.: Culture & Sensitivity - RES GRAM NEGATIVE RODS 11/26 1919 TRUNK/O.R.: Gram Stain - RES labs ordered, xray pt med with kormdhnf2it iv ordered case d/w dr hunt will have surgical constanza araya pt, advised to admit to ortho Culture was obtained by surgical CONSTANZA Goldman who spoke with orthopedist who agrees with plan I discussed with the patient over labs x-ray findings and need for admission which he is in agreement Diagnostic Imaging: Viewed by Me: Radiology Read. Discussed w/RAD: Radiology Read. Radiology Impression: PATIENT: NOLBERTO GUEVARA PRESENT AGE: 62 PATIENT ACCOUNT NO: [id number] : 54 LOCATION: [facility] ORDERING PHYSICIAN: Petar ZAMBRANO SERVICE DATE: 11/25/17 EXAM TYPE: RAD - XRY-AP PELVIS; XRY-CHEST XRAY, SINGLE VIEW; XRY-HIP 2-3 VIEWS, LEFT EXAMINATION: XR HIP, LEFT XR PELVIS XR CHEST CLINICAL INFORMATION: Status post recent left hip replacement done on 11/14/2017, suspected superimposed infection. COMPARISON: Left hip done on 11/14/2017. TECHNIQUE: Two views of the left hip. Single frontal view of the pelvis and single frontal view of the chest. FINDINGS: LEFT HIP, AND PELVIS: Postsurgical changes of total left hip arthroplasty is noted. The hardware appear intact. Alignment is intact. There is no periprosthetic lucency present. Previously documented soft tissue gas shows near-complete resolution. Incidental note is made of [id number] osteoarthrosis of the right hip. Significant fecal residual is noted within the visualized large bowel. CHEST: Both lungs are symmetrically expanded and are clear. The cardiomediastinal silhouette is within normal limits. Atherosclerotic changes are noted within the aorta. There is no pleural effusion present. No significant change since 09/28/2016. IMPRESSION: 1. Postsurgical changes of total left hip arthroplasty showing intact hardware and satisfactory alignment and no periprosthetic radiolucencies. 2. The chest radiograph shows no acute cardiopulmonary disease. 3. Vcbu-[id number]-emzqdodr osteoarthrosis at the right hip. DICTATED BY: Gabino Hagan MD DATE/TIME DICTATED:11/25/171831 CHEMICAL LAB TECHNICIAN:AMINA DATE/TIME TRANSCRIBED:11/25/171831 CONFIDENTIAL, DO NOT COPY WITHOUT APPROPRIATE AUTHORIZATION. <Electronically signed in Other Vendor System> SIGNED BY: Gabino Hagan MD 11/25/171841 Initial ED EKG: normal intervals, normal p-waves, normal QRS complex, normal sinus rhythm, nonspecific ST T wave chg Prior EKG: unchanged (Petar Umana) Departure Departure Time of Disposition: 1929 Disposition: STILL A PATIENT Condition: Stable Clinical Impression Primary Impression: Incisional infection Referrals: Gloria HARTLEY,Kenia Felix (PCP/Family) Departure Forms: Customer Survey General Discharge Information Admission Note Spoke With: Anya HARTLEY,Eduardo Titus Documentation of Exam: Documentation of any treatments & extenuating circumstances including Concerns Regarding Discharge (functional status, medication knowledge or non-compliance, living conditions, etc.) that warrant an admission rather than observation: ortho, id consult, trend labs, possible washout, possible picc line, premature dischareg would be medically harmful (Petar Umana) Admission Note Documentation of Exam: Documentation of any treatments & extenuating circumstances including Concerns Regarding Discharge (functional status, medication knowledge or non-compliance, living conditions, etc.) that warrant an admission rather than observation: I've seen and personally examined the patient and I agree with the PAs evaluation. Status post left hip replacement by Dr. Smith, now presents with pain swelling and discharge. She is being admitted for operative therapy to washout the hip joint-septic arthritis versus postoperative hematoma. PA/RETAIL PERFORMANCE COACH Co-Sign Statement Statement: ED Attending supervision documentation- [x] I saw and evaluated the patient. I have also reviewed all the pertinent lab results and diagnostic results. I agree with the findings and the plan of care as documented in the PA's/RETAIL PERFORMANCE COACH's documentation. [] I have reviewed the ED Record and agree with the PA's/RETAIL PERFORMANCE COACH's documentation. [] Additions or exceptions (if any) to the PAs/RETAIL PERFORMANCE COACH's note and plan are summarized below: [] (Mario Rodriguez DO)
[2017-11-25 18:01] LABS: ABSOLUTE BASOPHIL COUNT 0.1 /CUMM (0.0-0.2); ABSOLUTE EOSINOPHIL COUNT 0.3 /CUMM (0.0-0.7); ABSOLUTE GRANULOCYTE CT 4.9 /CUMM (1.4-6.5); ABSOLUTE LYMPH COUNT 2.6 /CUMM (1.2-3.4); ABSOLUTE MONOCYTE COUNT 0.9 /CUMM (0.10-0.60); BASOPHIL % 0.7 % (0.0-2.0); EOSINOPHIL % 2.9 % (0-5); GRANULOCYTE % 56.1 % (42.2-75.2); HEMATOCRIT 30.1 % (37-47); MEAN CORPUSCULAR HGB 29.4 PG (27.0-31.0); MEAN CORPUSCULAR VOLUME 88.9 FL (81.0-99.0); MEAN PLATELET VOLUME 8.1 FL (7.4-10.4); PLATELET COUNT 336 /CUMM (130-400); RBC DISTRIBUTION WIDTH 14.3 % (11.5-14.5); RED BLOOD CELL CT 3.39 /CUMM (4.20-5.40); WHITE BLOOD CELL COUNT 8.7 /CUMM (4.8-10.8)
[2017-11-25 18:11] LABS: PT 12.7 SEC (9.4-12.5); PTT 32 SEC (25-37)
[2017-11-25] MEDS ORDERED: SENNA8.6 M3 PO (18:23)
[2017-11-25] MEDS ORDERED: NICOTINE PATCH1 EAC1 TD (18:23)
[2017-11-25] MEDS ORDERED: DILAUDID4 M1 PO (18:24)
[2017-11-25] MEDS ORDERED: DILAUDID2 M1 PO (18:24)
[2017-11-25] MEDS ORDERED: CALCIUM500 M2 PO (18:25)
--- NOTE | 2017-11-25 18:43 | History & Physical Pre-Op ---
General Information and HPI MD Statement: I have seen and personally examined NOLBERTO GUEVARA and documented this H&P. The patient is a 62 year old F who presented with a patient stated chief complaint of [Left hip pain, wound drainage]. Source of Information: patient, old records Exam Limitations: no limitations History of Present Illness: This is a 62-year-old female who is 11 days status post primary left total hip arthroplasty, who has been recovering in a nursing facility for continued physical therapy and rehabilitation, presents to the ER with drainage from the left hip wound. She noted moderate amount of serous drainage of the last few days as of this morning, she had significant amount of dark brown/thick bloody drainage. The facility was concerned because of this and it was associated with increased pain in the left hip and she was sent to the ER for further evaluation. Patient has had persistent mild nausea since her surgery however no other constitutional symptoms. She denies any fever or flulike illness. She has a mild cough that she has had since the surgery as well, she denies shortness of breath or chest pain. She has had worsening swelling of the left hip and swelling of the left lower leg. She has been on Eliquis for DVT prophylaxis as well as 400 mg of Celebrex for inflammation/pain. Surgery was consulted to evaluate the wound Allergies/Medications Allergies: Coded Allergies: nickel (RASH 11/10/17) Penicillins (Intermediate, FAINTED, VOMITING AND HOSPITALIZED 08/18/17) Home Med list Apixaban (Eliquis) 2.5 MG TABLET 2.5 MG PO BID postop anticoagulation take for 6weeks Calcium Carbonate (Calcium) 500 MG CALCIUM (1,250 MG) TAB.CHEW 1 TAB PO Q8H PRN GI (Reported) Celecoxib (Celebrex) 200 MG CAPSULE 400 MG PO DAILY POSTOP PAIN Docusate Sodium 100 MG CAPSULE 100 MG PO BID CONTIPATION Ergocalciferol (Vitamin D2) (Vitamin D2) 50,000 UNIT CAPSULE 1 CAP PO QFRI SUPPLEMENT (Reported) Ferrous Sulfate (IRON) (Unknown Strength) TABLET (Unknown Dose) PO AD SUPPLEMENT (Reported) Hydromorphone HCl (Dilaudid) 2 MG TABLET 1 TAB PO Q4H PRN MODERATE PAIN ( Reported) Hydromorphone HCl (Dilaudid) 4 MG TABLET 1 TAB PO Q4H PRN SEVERE PAIN ( Reported) [IMMUNE SUPPLEMENT] (Unknown Strength) (Unknown Dose) PO EOD SUPPLEMENT ( Reported) Magnesium Oxide (Magnesium) (Unknown Strength) CAPSULE (Unknown Dose) PO EOD SUPPLEMENT (Reported) Morphine Sulfate (Morphine Sulfate ER) 15 MG TABLET.ER 15 MG PO BID POSTOP PAIN Nicotine (Nicotine Patch) 7 MG/24 HOUR PATCH.TD24 1 PAT TD DAILY SMOKING CESSATION (Reported) Polyethylene Glycol 3350 (Miralax) 17 GRAM/DOSE POWDER 17 GM PO DAILY PRN CONSTIPATION Sennosides (Senna) 8.6 MG TABLET 1 TAB PO EOD CONSTIPATION (Reported) Turmeric Root Extract (Turmeric) (Unknown Strength) CAPSULE (Unknown Dose) PO EOD SUPPLEMENT (Reported) Past History Medical History Neurological: NONE EENT: NONE Cardiovascular: CAD Respiratory: NONE Gastrointestinal: SMALL BOWEL OBSTRUCTION Hepatic: hepatitis C Renal: NONE Musculoskeletal: disk herniation, OSTEOPENIA Psychiatric: NONE Endocrine: NODULES ON THYROID Blood Disorders: NONE Cancer(s): CERVICAL CA 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 Ambulation: independent IADLs Independent: shopping, housework, finances, food prep, telephone, transportation , medication admin. Review of Systems Review of Systems Constitutional: Reports: see HPI. EENTM: Reports: no symptoms. Cardiovascular: Reports: no symptoms. Respiratory: Reports: cough. GI: Reports: no symptoms. Genitourinary: Reports: no symptoms. Musculoskeletal: Reports: see HPI. Skin: Reports: see HPI. Neurological/Psychological: Reports: no symptoms. Hematologic/Endocrine: Reports: no symptoms. Immunologic/Allergic: Reports: no symptoms. All Other Systems: Reviewed and Negative Exam & Diagnostic Data Last 24 Hrs of Vital Signs/I&O Vital Signs Date Time Temp Pulse Resp B/P B/P Pulse O2 O2 Flow FiO2 Mean Ox Delivery Rate 11/25 1751 97 Room Air 11/25 1637 98.3 70 18 134/62 92 Room Air Physical Exam: Well-developed well-nourished no apparent distress. HEENT: Atraumatic, extraocular motion intact Neck: Supple, no lymphadenopathy Respiratory: No respiratory distress Extremities: No edema Well-developed well-nourished no apparent distress. HEENT: Atraumatic, extraocular motion intact Neck: Supple, no lymphadenopathy Respiratory: No respiratory distress Extremities: Left lower extremity moderate leg edema. hip dressing in place, Dressing with mild dark bloody staining The proximal portion of the wound is using a small amount of dark thin drainage. There is no purulent discharge, there is no foul odor. The staple line is intact. There is significant swelling and tenseness at the staple line in the left hip with marginal erythema. It is tender to palpation. There is mild warmth. No shortening or rotation Hip range of motion is limited and without unexpected pain Neurovascularly intact distally Bilateral calves are supple, nontender. Neuro: Alert and oriented x3 Psych: Mood affect normal, normal memory normal judgment. Skin: Warm and dry, no rash on exposed skin lower extremity hip dressing in place, Dressing clean dry and intact with minimal bloody staining Incision without erythema Mild thigh swelling No signs of infection. No shortening or rotation Hip range of motion is limited and without unexpected pain Neurovascularly intact distally Bilateral calves are supple, nontender. Neuro: Alert and oriented x3 Psych: Mood affect normal, normal memory normal judgment. Skin: Warm and dry, no rash on exposed skin Last 24 Hrs of Labs/Chai: Laboratory Tests 11/25/17 1740: Anion Gap 7, Estimated GFR > 60, BUN/Creatinine Ratio 20.0, Glucose 105 H, Calcium 8.4, PT 12.7 H, INR 1.21 H, APTT 32, CBC w Diff NO MAN DIFF REQ, RBC 3.39 L, MCV 88.9, MCH 29.4, MCHC 33.0, RDW 14.3, MPV 8.1, Gran % 56.1, Lymphocytes % 30.2, Monocytes % 10.1 H, Eosinophils % 2.9, Basophils % 0.7, Absolute Granulocytes 4.9, Absolute Lymphocytes 2.6, Absolute Monocytes 0.9 H, Absolute Eosinophils 0.3, Absolute Basophils 0.1 Microbiology 11/25 1829 EXTREMITIE: Culture & Sensitivity - RECD 11/25 183 EXTREMITIE: Gram Stain - RECD 11/25 174 BLOOD: Blood Culture - RECD 11/25 1650 BLOOD: Blood Culture - ORD Diagnostic Data EKG Results 66 bpm, nsr, old anterior septal TX, no change from previous CXR Results PATIENT: NOLBERTO GUEVARA PRESENT AGE: 62 PATIENT ACCOUNT NO: [id number] : 54 LOCATION: [facility] ORDERING PHYSICIAN: Petar ZAMBRANO SERVICE DATE: 11/25/17 EXAM TYPE: RAD - XRY-AP PELVIS; XRY-CHEST XRAY, SINGLE VIEW; XRY-HIP 2-3 VIEWS, LEFT EXAMINATION: XR HIP, LEFT XR PELVIS XR CHEST CLINICAL INFORMATION: Status post recent left hip replacement done on 11/14/2017, suspected superimposed infection. COMPARISON: Left hip done on 11/14/2017. TECHNIQUE: Two views of the left hip. Single frontal view of the pelvis and single frontal view of the chest. FINDINGS: LEFT HIP, AND PELVIS: Postsurgical changes of total left hip arthroplasty is noted. The hardware appear intact. Alignment is intact. There is no periprosthetic lucency present. Previously documented soft tissue gas shows near-complete resolution. Incidental note is made of [id number]-[id number] osteoarthrosis of the right hip. Significant fecal residual is noted within the visualized large bowel. CHEST: Both lungs are symmetrically expanded and are clear. The cardiomediastinal silhouette is within normal limits. Atherosclerotic changes are noted within the aorta. There is no pleural effusion present. No significant change since 09/28/2016. IMPRESSION: 1. Postsurgical changes of total left hip arthroplasty showing intact hardware and satisfactory alignment and no periprosthetic radiolucencies. 2. The chest radiograph shows no acute cardiopulmonary disease. 3. Volo-pp-qqfnnmyz osteoarthrosis at the right hip. DICTATED BY: Gabino Hagan MD DATE/TIME DICTATED:11/25/171831 CRYSTAL GROWING TECHNICIAN:AMINA DATE/TIME TRANSCRIBED:11/25/171831 Assessment/Plan Assessment/Plan: 62-year-old female status post left total hip replacement, 11 days out, returns to the ER with draining from her wound, likely large hematoma from postoperative anticoagulation and NSAIDs although cannot rule out infected hematoma or septic joint. A superficial culture of the drainage was obtained from the proximal aspect of the drainage where I cleansed the area and inserted a culture swab into the proximal wound. She will require admission and evacuation of his hematoma in the OR tomorrow by Dr. Smith as well as intraoperative cultures. We will hold her anticoagulation, hold NSAIDs, make her nothing by mouth after midnight, follow CBC and white blood cell count, follow cultures, pain medication as needed, daily dressing changes. Discussed with Eduardo Joyner MD and discussed with patient who understands and agrees with plan As Ranked By This Provider Problem List: 1. Postoperative wound hematoma 2. Status post total hip replacement, left
[2017-11-25 21:49] VITALS: BP 140/64
--- NOTE | 2017-11-25 23:32 | Admission Core Measures ---
Acute Coronary Syndrome (CM) ACS Core Measures Acute Coronary Syndrome Diagnosis No Congestive Heart Failure (NEW) CHF Core Measures Congestive Heart Failure Diagnosis No Cerebrovascular Accident (NEW) CVA Core Measures CVA/TIA Diagnosis No Venous Thromboembolism VTE Core Dahlia (View Protocol) VTE Risk Factors Age>40 No Mechanical VTE Prophylaxis d/t N/A MechProphylax Ordered No VTE Pharm Prophylaxis d/t Surgical Contraindication Problem List As ranked by this Provider includes Assessment & Plan 1. Status post total hip replacement, left 2. Postoperative wound hematoma HOME MEDS Home Med List Apixaban (Eliquis) 2.5 MG TABLET 2.5 MG PO BID postop anticoagulation Calcium Carbonate (Calcium) 500 MG CALCIUM (1,250 MG) TAB.CHEW 1 TAB PO Q8H PRN GI (Reported) Celecoxib (Celebrex) 200 MG CAPSULE 400 MG PO DAILY POSTOP PAIN Docusate Sodium 100 MG CAPSULE 100 MG PO BID CONTIPATION Ergocalciferol (Vitamin D2) (Vitamin D2) 50,000 UNIT CAPSULE 1 CAP PO QFRI SUPPLEMENT (Reported) Ferrous Sulfate (IRON) (Unknown Strength) TABLET (Unknown Dose) PO AD SUPPLEMENT (Reported) Hydromorphone HCl (Dilaudid) 2 MG TABLET 1 TAB PO Q4H PRN MODERATE PAIN ( Reported) Hydromorphone HCl (Dilaudid) 4 MG TABLET 1 TAB PO Q4H PRN SEVERE PAIN ( Reported) [IMMUNE SUPPLEMENT] (Unknown Strength) (Unknown Dose) PO EOD SUPPLEMENT ( Reported) Magnesium Oxide (Magnesium) (Unknown Strength) CAPSULE (Unknown Dose) PO EOD SUPPLEMENT (Reported) Morphine Sulfate (Morphine Sulfate ER) 15 MG TABLET.ER 15 MG PO BID POSTOP PAIN Nicotine (Nicotine Patch) 7 MG/24 HOUR PATCH.TD24 1 PAT TD DAILY SMOKING CESSATION (Reported) Polyethylene Glycol 3350 (Miralax) 17 GRAM/DOSE POWDER 17 GM PO DAILY PRN CONSTIPATION Sennosides (Senna) 8.6 MG TABLET 1 TAB PO EOD CONSTIPATION (Reported) Turmeric Root Extract (Turmeric) (Unknown Strength) CAPSULE (Unknown Dose) PO EOD SUPPLEMENT (Reported)
[2017-11-26 06:46] VITALS: BP 135/55
--- NOTE | 2017-11-26 08:00 | PN- Orthopedic ---
See Addendum Subjective Subjective: Patient resting comfortably at present. Denies parasthesias. Rates pain as 6-7 with motion. Denies shortness of breath and chest pain. Denies nausea and vomitting. Is voiding. Anticipates surgery this afternoon for wound check/ washout. Objective Vital Signs and I&Os Vital Signs Date Time Temp Pulse Resp B/P B/P Pulse O2 O2 Flow FiO2 Mean Ox Delivery Rate 11/26 0646 98.3 72 20 135/55 93 11/25 2149 98.0 65 19 140/64 94 Room Air 11/25 2021 98.1 73 22 126/60 96 Nasal 2.0L Cannula 11/25 1850 97.8 62 18 124/56 95 Nasal 2.0L Cannula 11/25 1751 97 Room Air 11/25 1637 98.3 70 18 134/62 92 Room Air Intake & Output 11/26 0800 11/26 0000 11/25 1600 11/25 0800 11/25 0000 11/24 1600 Intake Total 470 517.5 Output Total Balance 470 517.5 Intake, IV 470 37.5 Intake, Oral 0 480 Number 0 0 Bowel Movements Patient 250 lb Weight Weight Reported by Patient Measurement Method Physical Exam: General: Alert and oriented x3, no acute distress Cardiac: RRR, s1s2 Pulm: Non-labored respiratory effort. Expiratory wheeze ausculted on left side Abd: Non-tender, non-distended Extremties: Moves all extremities, distal sensation intact. No rotational deformity. Swelling noted to LLE, no redness to calf, calf non-tender, right calf soft and non-tender. DP and PT pulses palpable bialterally. Wound covered , dressing with small area of dark brown drainage at proximal aspect. Some surrounding wound erythema noted. No purulent drainage noted. Assessment/Plan Assessment/Plan This is a 62 year old POD 12 s/p THR, admitted to hospital one day ago for wound drainage and evaluation for hematoma. -Continue NPO -IV fluid at 75/hr -No nsaid or anticoagulant, mechanical dvt ppx -Respiratory therapy to be ordered for breathing treatment -Cultures to be obtained intraop -OR today with Dr. Smith for I&D wound Core Measures Venous Thromboembolism VTE Risk Factors Age>40 No Mechanical VTE Prophylaxis d/t N/A MechProphylax Ordered No VTE Pharm Prophylaxis d/t Surgical Contraindication
[2017-11-26 08:39] LABS: ABSOLUTE BASOPHIL COUNT 0 /CUMM (0.0-0.2); ABSOLUTE EOSINOPHIL COUNT 0.2 /CUMM (0.0-0.7); ABSOLUTE LYMPH COUNT 2.3 /CUMM (1.2-3.4); ABSOLUTE MONOCYTE COUNT 0.7 /CUMM (0.10-0.60); BASOPHIL % 0.6 % (0.0-2.0); EOSINOPHIL % 2.6 % (0-5); GRANULOCYTE % 60.4 % (42.2-75.2); HEMATOCRIT 28.8 % (37-47); MEAN CORPUSCULAR HGB 29.2 PG (27.0-31.0); MEAN CORPUSCULAR HGB CONC 33.3 G/DL (33.0-37.0); MEAN CORPUSCULAR VOLUME 87.7 FL (81.0-99.0); MEAN PLATELET VOLUME 8.4 FL (7.4-10.4); PLATELET COUNT 316 /CUMM (130-400); RBC DISTRIBUTION WIDTH 14.2 % (11.5-14.5); RED BLOOD CELL CT 3.28 /CUMM (4.20-5.40); WHITE BLOOD CELL COUNT 8.3 /CUMM (4.8-10.8)
[2017-11-26 15:44] VITALS: BP 128/60
--- NOTE | 2017-11-26 20:51 | Operative Report ---
Operative/Inv Procedure Report Surgery Date: 11/26/17 Name of Procedure: Irrigation debridement left hip and evacuation of hematoma Exchange of polyethylene liner and femoral head Pre-Operative Diagnosis: Infected left hip status post left total hip arthroplasty Post-Operative Diagnosis: Same Estimated Blood Loss: scant (200 CC) Surgeon/Developer Advisor: HUGO Prescott Anesthesia: laryngeal mask airway IV Fluids: See anesthesia record Implants: Samantha 36 mm ceramic Biolox head, polyethylene liner for a acetabular shell Drains: Hemovac drain Specimens: Superficial tissue sent to microbiology for culture and sensitivity Deep hip tissue sent to like neurology for culture and sensitivity Femoral head and acetabular liner sent to pathology Complications: None Condition: Stable Operative Indication: Patient 62-year-old female status post left total hip arthroplasty 11 days ago who presented to the emergency room with drainage from left hip incision. She denied any fever or chills. However there was a large amount of drainage that was reported. She was indicated for irrigation debridement of the wound, evacuation hematoma and possible exchange polyethylene liner Operative/Procedure Note Note: Once informed consent was obtained and the correct limb was identified patient brought to operative placed on table supine position. After administration of general endotracheal anesthesia the patient placed in right lateral cubitus position on the pegboard. The left lower shoulder is prepped and draped in usual sterile fashion. To begin the procedure the old incision was opened with a #15 blade. Large amount of hematogenous fluid was evacuated immediately from the superficial layer of the incision. No gross purulence was noted however the hematomas was slightly cloudy. There was a defect in the fascial layer and the fascial layer was then opened. At this point pulse lavage was done and specimens were sent for microbiology culture and sensitivity. A decision was then made due to the fact that the hematoma fluid had tracked deep to the fascia to do a polyethylene liner exchange. The hip was dislocated and the femoral head is removed. The acetabular liner was then removed with a osteotome device. Again the wound and acetabulum are pulse lavage. A new polyethylene liner was opened and locked into the acetabular shell. A new 36 mm 0 neck length Biolox head was placed onto the femoral stem and the hip was relocated. The hip was taken through a range of motion and found to be stable at 90 of flexion with 30 pulse lavaged performed. A deep drain was placed. The fascia was then closed with a running #1 looped Maxon suture. The skin was then closed with deep #2 nylon interrupted sutures and superficial 2-0 nylon interrupted sutures. A sterile dressing was applied and the patient was awakened taken recovery in stable condition.
[2017-11-26 22:15] VITALS: BP 132/70
[2017-11-27 06:19] VITALS: BP 138/60
--- NOTE | 2017-11-27 07:52 | PN- Orthopedic ---
Subjective Subjective: PT IN BED, COMPLAINS OF 8/10 LEFT HIP PAIN THAT RADIATES TO HER GROIN AND DOWN HER THIGH. DENIES PARESTHESIAS. DENIES FEVERS. VOIDING. TOLERATING PO HAS NOT5 AMBULATED YET Objective Vital Signs and I&Os Vital Signs Date Time Temp Pulse Resp B/P B/P Pulse O2 O2 Flow FiO2 Mean Ox Delivery Rate 11/27 0619 98.5 69 20 138/60 97 Nasal 3.0L Cannula 11/27 0000 Nasal 3.0L Cannula 11/26 2215 97.9 62 18 132/70 98 Nasal 3.0L Cannula 11/26 1544 98.8 63 20 128/60 96 Room Air 11/26 1053 Room Air Intake & Output 11/27 0800 11/27 0000 11/26 1600 11/26 0800 11/26 0000 11/25 1600 Intake Total 710 600 470 517.5 Output Total 1090 Balance -380 600 470 517.5 Intake, IV 470 600 470 37.5 Intake, Oral 240 0 480 Number 0 0 0 0 Bowel Movements Output, 40 Drainage Output, Urine 1050 Patient 250 lb Weight Weight Reported by Patient Measurement Method Physical Exam: GEN-NAD RESP-MILD UPPER AIRWAY RHONCI ON LEFT THAT CLEARED AFTER COUGHING. CARDIO-RRR ABD-ND, SOFT, NT EXT- LEFT HIP DRESSING CLEAN AND DRY, HIP IS SOFT. 1+ EDEMA Assessment/Plan Assessment/Plan 62YO F SP LEFT JUSTO ON 11/14 COMPLICATED BY HEMATOMA REQUIRING DRAINAGE AND WASHOUT WITH POLYEXCHANGE ON 11/26 CONT CLINDAMYCIN FOR NOW- WOUND CULTURES FROM OR ARE PENDING PTHYSICAL THERAPY- WBAT, ENCOURAGE AMBULATION PAIN MANAGEMENT REG DIET DVT PPX- ALPS (ELIQUIS ON HOLD FOR NOW, TO START 11/28) HELP LOCK IVF FU AM LABS Core Measures Venous Thromboembolism VTE Risk Factors Age>40 No Mechanical VTE Prophylaxis d/t N/A MechProphylax Ordered No VTE Pharm Prophylaxis d/t Surgical Contraindication
[2017-11-27 08:26] LABS: ABSOLUTE BASOPHIL COUNT 0 /CUMM (0.0-0.2); ABSOLUTE EOSINOPHIL COUNT 0 /CUMM (0.0-0.7); EOSINOPHIL % 0 % (0-5)
[2017-11-27 08:54] LABS: ABSOLUTE GRANULOCYTE CT 11.9 /CUMM (1.4-6.5); ABSOLUTE MONOCYTE COUNT 0.9 /CUMM (0.10-0.60); BASOPHIL % 0 % (0.0-2.0); HEMATOCRIT 27.5 % (37-47); MEAN CORPUSCULAR HGB 29.4 PG (27.0-31.0); MEAN CORPUSCULAR HGB CONC 33.4 G/DL (33.0-37.0); MEAN PLATELET VOLUME 8.5 FL (7.4-10.4); PLATELET COUNT 321 /CUMM (130-400); RBC DISTRIBUTION WIDTH 13.8 % (11.5-14.5); RED BLOOD CELL CT 3.13 /CUMM (4.20-5.40)
[2017-11-27 08:57] LABS: WHITE BLOOD CELL COUNT 13.8 /CUMM (4.8-10.8)
[2017-11-27 09:17] LABS: GRANULOCYTE % 86.2 % (42.2-75.2)
[2017-11-27 09:22] VITALS: BP 124/30
[2017-11-27 09:36] VITALS: BP 122/52
--- NOTE | 2017-11-27 13:03 | Cons- Infect Disease ---
General Information and HPI Consulting Request Date of Consult: 11/27/17 Requested By: Anya HARTLEY,Eduardo Titus Reason for Consult: antibiotic advice Source of Information: patient, primary team Exam Limitations: clinical condition History of Present Illness: 62-year-old female who is 13 days status post primary left total hip arthroplasty, who has been recovering in a nursing facility for continued physical therapy and rehabilitation, presents to the ER with drainage from the left hip wound. She noted moderate amount of serous drainage of the last few days as of this morning, she had significant amount of dark brown/thick bloody drainage, associated with increased pain in the left hip. She has had worsening swelling of the left hip and swelling of the left lower leg. She has been on Eliquis for DVT prophylaxis as well as 400 mg of Celebrex for inflammation/pain. S/P L JUSTO on 11/14, complicated by infected hematoma (11/25 culture + Klebsiella pna); requiring drainage and washout w/ polyexchange on 11/26; retained prosthesis. Denies fever/chills/n/v/abd pain. Persistent L hip pain. Allergies/Medications Allergies: Coded Allergies: nickel (RASH 11/10/17) Penicillins (Intermediate, FAINTED, VOMITING AND HOSPITALIZED 08/18/17) Home Med List: Apixaban (Eliquis) 2.5 MG TABLET 2.5 MG PO BID postop anticoagulation take for 6weeks Calcium Carbonate (Calcium) 500 MG CALCIUM (1,250 MG) TAB.CHEW 1 TAB PO Q8H PRN GI (Reported) Celecoxib (Celebrex) 200 MG CAPSULE 400 MG PO DAILY POSTOP PAIN Docusate Sodium 100 MG CAPSULE 100 MG PO BID CONTIPATION Ergocalciferol (Vitamin D2) (Vitamin D2) 50,000 UNIT CAPSULE 1 CAP PO QFRI SUPPLEMENT (Reported) Ferrous Sulfate (IRON) (Unknown Strength) TABLET (Unknown Dose) PO AD SUPPLEMENT (Reported) Hydromorphone HCl (Dilaudid) 2 MG TABLET 1 TAB PO Q4H PRN MODERATE PAIN ( Reported) Hydromorphone HCl (Dilaudid) 4 MG TABLET 1 TAB PO Q4H PRN SEVERE PAIN ( Reported) [IMMUNE SUPPLEMENT] (Unknown Strength) (Unknown Dose) PO EOD SUPPLEMENT ( Reported) Magnesium Oxide (Magnesium) (Unknown Strength) CAPSULE (Unknown Dose) PO EOD SUPPLEMENT (Reported) Morphine Sulfate (Morphine Sulfate ER) 15 MG TABLET.ER 15 MG PO BID POSTOP PAIN Nicotine (Nicotine Patch) 7 MG/24 HOUR PATCH.TD24 1 PAT TD DAILY SMOKING CESSATION (Reported) Polyethylene Glycol 3350 (Miralax) 17 GRAM/DOSE POWDER 17 GM PO DAILY PRN CONSTIPATION Sennosides (Senna) 8.6 MG TABLET 1 TAB PO EOD CONSTIPATION (Reported) Turmeric Root Extract (Turmeric) (Unknown Strength) CAPSULE (Unknown Dose) PO EOD SUPPLEMENT (Reported) Current Medications: Current Medications Sig/Mary Start time Last Medication Dose Route Stop Time Status Admin Acetaminophen 1,000 MG Q6H 11/27 0800 AC 11/27 N/A 1 UNIT IV 11/28 0214 0815 Acetaminophen 650 MG Q4P PRN 11/26 204 DC PO Apixaban 2.5 MG BID 11/28 1000 AC PO Calcium Carbonate 500 MG Q8P PRN 11/25 1900 AC PO Clindamycin 900 MG IQ8 11/27 0000 AC 11/27 Dextrose/Water 50 ML IV 0737 Dextrose/Sodium 1,000 ML Q13H 11/25 1845 SC 11/26 Chloride IV 2207 Docusate Sodium 100 MG BID 11/25 2200 AC 11/27 PO 0915 Fentanyl Citrate 250 MCG .STK-MED ONE 11/26 1929 DC IM 11/26 1930 Fentanyl Citrate 200 MCG .STK-MED ONE 11/26 182 DC IM 11/26 182 Hydromorphone HCl 2 MG Q4P PRN 11/25 1900 AC PO Hydromorphone HCl 4 MG Q4 HRS NEEDED PRN 11/25 1900 11/27 PO 0916 Midazolam HCl 2 MG .STK-MED ONE 11/26 205 DC IM 11/26 2053 Midazolam HCl 2 MG .STK-MED ONE 11/26 1824 DC IM 11/26 182 Morphine Sulfate 2 MG Q4P PRN 11/26 2030 AC 11/26 IV 2213 Morphine Sulfate 4 MG Q4P PRN 11/26 0145 DC IV Morphine Sulfate 15 MG BID 11/25 2200 AC 11/27 PO 0915 Nicotine 7 MG DAILY 11/25 1849 AC 11/27 TOP 0915 Ondansetron HCl 4 MG .STK-MED ONE 11/26 1825 DC IM 11/26 182 Ondansetron HCl 4 MG Q6P PRN 11/25 1900 AC IV Senna 187 MG AT BEDTIME 11/25 2199 AC 11/26 PO 2206 Past History Travel History Traveled to [place] past 21 day No Medical History Blood Transfusion Hx: No Neurological: NONE EENT: NONE Cardiovascular: CAD Respiratory: NONE Gastrointestinal: SMALL BOWEL OBSTRUCTION Hepatic: hepatitis C Renal: NONE Musculoskeletal: disk herniation, OSTEOPENIA Psychiatric: NONE Endocrine: NODULES ON THYROID Blood Disorders: NONE Cancer(s): CERVICAL CA 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 Acute Rehab Services at Home: None Smoking Status: Light Tobacco Smoker Functional Ability ADLs Independent: dressing, eating, toileting, bathing. Ambulation: independent IADLs Independent: shopping, housework, finances, food prep, telephone, transportation , medication admin. Review of Systems Comments 12 points reviewed as noted, otherwise negative. Patient has had persistent mild nausea since her surgery however no other constitutional symptoms. She denies any fever or flulike illness. She has a mild cough that she has had since the surgery as well, she denies shortness of breath or chest pain. Exam & Diagnostic Data Last 24 Hrs of Vital Signs/I&O Vital Signs Date Time Temp Pulse Resp B/P B/P Pulse O2 O2 Flow FiO2 Mean Ox Delivery Rate 11/27 0936 18 122/52 94 Nasal 2.0L Cannula 11/27 0922 98.3 77 20 124/30 94 Room Air 11/27 0800 95 Nasal 2.0L Cannula 11/27 0619 98.5 69 20 138/60 97 Nasal 3.0L Cannula 11/27 0000 Nasal 3.0L Cannula 11/26 2215 97.9 62 18 132/70 98 Nasal 3.0L Cannula 11/26 1544 98.8 63 20 128/60 96 Room Air Intake & Output 11/27 1600 11/27 0800 11/27 0000 Intake Total 710 Output Total 1090 Balance -380 Intake, IV 470 Intake, Oral 240 Number 0 Bowel Movements Output, 40 Drainage Output, Urine 1050 Physical Exam Other Physical Findings: Well-developed well-nourished no apparent distress. HEENT: Atraumatic, sclera anicteric Neck: Supple, no lymphadenopathy Respiratory: No respiratory distress Heart: S1 S2 present, no m/r/g Abd: soft, NT, + BS Extremities: Left lower extremity moderate leg edema. Hip dressing in place. It is tender to palpation. There is increased warmth. Neuro: Alert and oriented x3 Psych: Mood affect normal, normal memory normal judgment. Skin: Warm and dry, no rash on exposed skin lower extremity hip dressing in place. Thigh swelling. DELROY drain in place Last 24 Hours of Lab Results: Laboratory Tests 11/27 0720 Chemistry Sodium (137 - 145 mmol/L) 139 Potassium (3.5 - 5.1 mmol/L) 4.6 Chloride (98 - 107 mmol/L) 104 Carbon Dioxide (22 - 30 mmol/L) 29 Anion Gap (5 - 16) 6 BUN (7 - 17 mg/dL) 11 Creatinine (0.5 - 1.0 mg/dL) 0.7 Estimated GFR (>60 ml/min) > 60 BUN/Creatinine Ratio (7 - 25 %) 15.7 Hematology CBC w Diff NO MAN DIFF REQ WBC (4.8 - 10.8 /CUMM) 13.8 H RBC (4.20 - 5.40 /CUMM) 3.13 L Hgb (12.0 - 16.0 G/DL) 9.2 L Hct (37 - 47 %) 27.5 L MCV (81.0 - 99.0 FL) 88.0 MCH (27.0 - 31.0 PG) 29.4 MCHC (33.0 - 37.0 G/DL) 33.4 RDW (11.5 - 14.5 %) 13.8 Plt Count (130 - 400 /CUMM) 321 MPV (7.4 - 10.4 FL) 8.5 Gran % (42.2 - 75.2 %) 86.2 H Lymphocytes % (20.5 - 51.1 %) 7.6 L Monocytes % (1.7 - 9.3 %) 6.2 Eosinophils % (0 - 5 %) 0 Basophils % (0.0 - 2.0 %) 0 Absolute Granulocytes (1.4 - 6.5 /CUMM) 11.9 H Absolute Lymphocytes (1.2 - 3.4 /CUMM) 1.0 L Absolute Monocytes (0.10 - 0.60 /CUMM) 0.9 H Absolute Eosinophils (0.0 - 0.7 /CUMM) 0 Absolute Basophils (0.0 - 0.2 /CUMM) 0 Last 24 Hours of Chai Results: SPEC #: [id number] MAXIMO: 11/25/17 STATUS: COMP RECD: 11/25/[address]: Harry Sloan SOURCE: EXTREMITIE ENTR: 11/25/[address]: Petar Umana SPDESC: IVÁN Csatro MD,Kenia Felix ORDERED: XTRM CULT COMMENT: TYPE OF SPECIMEN: SUPERFICIAL Procedure Result > GRAM STAIN Final 11/26/17 WHITE BLOOD CELLS FEW SQUAMOUS CELLS RARE GRAM POSITIVE COCCI RARE GRAM NEGATIVE RODS FEW GRAM POSITIVE RODS MANY > EXTREMITIES CULTURE Final 11/27/17 Mixed jonathan after 2 days withh Moderate growth of: KLEBSIELLA PNEUMONIAE 1. KLEBSIELLA PNEUMONIAE RX AB ------ -- AMPICILLIN R CEFAZOLIN S AMOXICILLIN/CLAVULINIC ACID S AMPICILLIN/SULBACTAM S CIPROFLOXACIN S GENTAMICIN S TRIMETHOPRIM/SULFAMETHOXAZOLE S Diagnostic Data Recent Imaging Findings: LEFT HIP, AND PELVIS: Postsurgical changes of total left hip arthroplasty is noted. The hardware appear intact. Alignment is intact. There is no periprosthetic lucency present. Previously documented soft tissue gas shows near-complete resolution. Incidental note is made of [id number] osteoarthrosis of the right hip. Significant fecal residual is noted within the visualized large bowel. CHEST: Both lungs are symmetrically expanded and are clear. The cardiomediastinal silhouette is within normal limits. Atherosclerotic changes are noted within the aorta. There is no pleural effusion present. No significant change since 09/28/2016. IMPRESSION: 1. Postsurgical changes of total left hip arthroplasty showing intact hardware and satisfactory alignment and no periprosthetic radiolucencies. 2. The chest radiograph shows no acute cardiopulmonary disease. 3. Ipyw-rz-bwuyykte osteoarthrosis at the right hip. DICTATED BY: Gabino Hagan MD DATE/TIME DICTATED:11/25/171831 TUBE BALANCER:AMINA DATE/TIME TRANSCRIBED:11/25/171831 Assessment/Plan Assessment/Plan Impression: 62-year-old female with history of hep C, cervical cancer, ALEXA, CAD, nephrolithiasis who is 13 days status post primary left total hip arthroplasty admitted on 11/25 with L hip pain and drainage. Eval for early L JUSTO infection (likly pathogens usually virulent organisms S. aureus, GNR, anaerobic organisms, or mixed infections); underwent drainage and washout w/ retained prosthesis s/p acetabular liner and femoral head exchange on 11/26. Infected hematoma (11/25 culture + Klebsiella pna, although gm stain revealing polymicrobial infection); Listed allergy to PCN (n/v) Of EKG today; QT interval not prolonged. Suggestion: 1.CBC, BMP in am; ESR/CRP in am, then weekly. 2. Start Cipro 400 mg iv q 12 h and vancomycin 1.5 gm q 12 h pending final OR cultures from 11/26; d/c clindamycin. 3. F/U final OR cultures, as well pathology results. . Consult Acknowledgment - Thank you for your consult request.
[2017-11-27 13:49] VITALS: BP 124/40
[2017-11-27 19:12] VITALS: BP 152/42
[2017-11-27 22:34] VITALS: BP 110/50
[2017-11-28 06:46] VITALS: BP 120/60
--- NOTE | 2017-11-28 07:59 | PN- Orthopedic ---
See Addendum Subjective Subjective: many complaints, Objective Vital Signs and I&Os Vital Signs Date Time Temp Pulse Resp B/P B/P Pulse O2 O2 Flow FiO2 Mean Ox Delivery Rate 11/28 0646 98.4 78 20 120/60 96 Room Air 11/27 2234 98.8 78 18 110/50 94 Room Air 11/27 1912 97.9 80 20 152/42 93 11/27 1349 98.5 82 20 124/40 93 Room Air 11/27 0936 18 122/52 94 Nasal 2.0L Cannula 11/27 0922 98.3 77 20 124/30 94 Room Air Intake & Output 11/28 1600 11/28 0800 11/28 0000 11/27 1600 11/27 0800 11/27 0000 Intake Total 480 1350 1000 710 Output Total 630 400 315 6904 Balance -150 710 350 -380 Intake, IV 550 200 470 Intake, Oral 480 800 800 240 Number 0 Bowel Movements Output, 30 40 50 40 Drainage Output, Urine [phone] Physical Exam: gen- nad card- s1s2 rrr pulm- clear, poor inspiratory effort abd- obese soft nt ext- left hip dressing w serosang drainage, changed. sutures intact, elisha with serosang drainage, oozing from elisha site- no active bleeding. very ttp. calves soft nt, alps on. palp pedal pulses, +dorsi/plantar flexion Results Last 48 Hours of Labs: Laboratory Tests 11/28 11/27 0800 0720 Chemistry Sodium (137 - 145 mmol/L) Pending 139 Potassium (3.5 - 5.1 mmol/L) Pending 4.6 Chloride (98 - 107 mmol/L) Pending 104 Carbon Dioxide (22 - 30 mmol/L) Pending 29 Anion Gap (5 - 16) Pending 6 BUN (7 - 17 mg/dL) Pending 11 Creatinine (0.5 - 1.0 mg/dL) Pending 0.7 Estimated GFR (>60 ml/min) > 60 BUN/Creatinine Ratio (7 - 25 %) Pending 15.7 C-Reactive Prot, Quant Pending Hematology CBC w Diff Pending NO MAN DIFF REQ WBC (4.8 - 10.8 /CUMM) Pending 13.8 H RBC (4.20 - 5.40 /CUMM) Pending 3.13 L Hgb (12.0 - 16.0 G/DL) Pending 9.2 L Hct (37 - 47 %) Pending 27.5 L MCV (81.0 - 99.0 FL) Pending 88.0 MCH (27.0 - 31.0 PG) Pending 29.4 MCHC (33.0 - 37.0 G/DL) Pending 33.4 RDW (11.5 - 14.5 %) Pending 13.8 Plt Count (130 - 400 /CUMM) Pending 321 MPV (7.4 - 10.4 FL) Pending 8.5 Gran % (42.2 - 75.2 %) 86.2 H Lymphocytes % (20.5 - 51.1 %) 7.6 L Monocytes % (1.7 - 9.3 %) 6.2 Eosinophils % (0 - 5 %) 0 Basophils % (0.0 - 2.0 %) 0 Absolute Granulocytes (1.4 - 6.5 /CUMM) 11.9 H Absolute Lymphocytes (1.2 - 3.4 /CUMM) 1.0 L Absolute Monocytes (0.10 - 0.60 /CUMM) 0.9 H Absolute Eosinophils (0.0 - 0.7 /CUMM) 0 Absolute Basophils (0.0 - 0.2 /CUMM) 0 ESR Westergren Pending Assessment/Plan Assessment/Plan A- POD2 sp poly exchange L hip for infected hematoma, stable with postop pain. P- cont abx picc line today restart eliquis today after picc fu labs prn pain meds appreciate id input diet as tolerated pt, wbat dc planning Core Measures Venous Thromboembolism VTE Risk Factors Age>40 No Mechanical VTE Prophylaxis d/t N/A MechProphylax Ordered No VTE Pharm Prophylaxis d/t Surgical Contraindication
[2017-11-28 09:05] LABS: ABSOLUTE BASOPHIL COUNT 0.1 /CUMM (0.0-0.2); ABSOLUTE EOSINOPHIL COUNT 0.1 /CUMM (0.0-0.7); ABSOLUTE GRANULOCYTE CT 11.3 /CUMM (1.4-6.5); ABSOLUTE LYMPH COUNT 3.3 /CUMM (1.2-3.4); ABSOLUTE MONOCYTE COUNT 1.5 /CUMM (0.10-0.60); BASOPHIL % 0.6 % (0.0-2.0); EOSINOPHIL % 0.8 % (0-5); GRANULOCYTE % 69.3 % (42.2-75.2); HEMATOCRIT 26.4 % (37-47); MEAN CORPUSCULAR HGB 29.2 PG (27.0-31.0); MEAN CORPUSCULAR HGB CONC 32.6 G/DL (33.0-37.0); MEAN CORPUSCULAR VOLUME 89.6 FL (81.0-99.0); PLATELET COUNT 246 /CUMM (130-400); RBC DISTRIBUTION WIDTH 14.4 % (11.5-14.5); RED BLOOD CELL CT 2.94 /CUMM (4.20-5.40)
[2017-11-28 11:04] LABS: WHITE BLOOD CELL COUNT 16.3 /CUMM (4.8-10.8)
--- NOTE | 2017-11-28 13:38 | PN- Infect Dx ---
Subjective Subjective: No fever. severe pain L hip. Review of Systems Comments: 12 points reviewed as noted, otherwise negative. Objective Last 24 Hrs of Vital Signs/I&O Vital Signs Date Time Temp Pulse Resp B/P B/P Pulse O2 O2 Flow FiO2 Mean Ox Delivery Rate 11/28 0646 98.4 78 20 120/60 96 Room Air 11/27 2234 98.8 78 18 110/50 94 Room Air 11/27 1912 97.9 80 20 152/42 93 11/27 1349 98.5 82 20 124/40 93 Room Air Intake & Output 11/28 1600 11/28 0800 11/28 0000 Intake Total 480 1350 Output Total 630 640 Balance -150 710 Intake, IV 550 Intake, Oral 480 800 Output, 30 40 Drainage Output, Urine 600 600 Physical Exam Other Physical Findings: Well-developed well-nourished no apparent distress. HEENT: Atraumatic, sclera anicteric Neck: Supple, no lymphadenopathy Respiratory: No respiratory distress Heart: S1 S2 present, no m/r/g Abd: soft, NT, + BS Extremities: Left lower extremity moderate leg edema. Hip dressing in place. It is tender to palpation. Neuro: Alert and oriented x3 Psych: Mood affect normal, normal memory normal judgment. Skin: Warm and dry, no rash on exposed skin lower extremity hip dressing in place. Decreased thigh swelling. DELROY drain in place Results Last 24 Hours of Lab Results: Laboratory Tests 11/28 0800 Chemistry Sodium (137 - 145 mmol/L) 138 Potassium (3.5 - 5.1 mmol/L) 4.2 Chloride (98 - 107 mmol/L) 104 Carbon Dioxide (22 - 30 mmol/L) 27 Anion Gap (5 - 16) 7 BUN (7 - 17 mg/dL) 11 Creatinine (0.5 - 1.0 mg/dL) 0.6 Estimated GFR (>60 ml/min) > 60 BUN/Creatinine Ratio (7 - 25 %) 18.3 C-Reactive Prot, Quant (<1.0 mg/dL) 7.2 H Hematology CBC w Diff NO MAN DIFF REQ WBC (4.8 - 10.8 /CUMM) 16.3 H RBC (4.20 - 5.40 /CUMM) 2.94 L Hgb (12.0 - 16.0 G/DL) 8.6 L Hct (37 - 47 %) 26.4 L MCV (81.0 - 99.0 FL) 89.6 MCH (27.0 - 31.0 PG) 29.2 MCHC (33.0 - 37.0 G/DL) 32.6 L RDW (11.5 - 14.5 %) 14.4 Plt Count (130 - 400 /CUMM) 246 MPV (7.4 - 10.4 FL) 9.0 Gran % (42.2 - 75.2 %) 69.3 Lymphocytes % (20.5 - 51.1 %) 20.0 L Monocytes % (1.7 - 9.3 %) 9.3 Eosinophils % (0 - 5 %) 0.8 Basophils % (0.0 - 2.0 %) 0.6 Absolute Granulocytes (1.4 - 6.5 /CUMM) 11.3 H Absolute Lymphocytes (1.2 - 3.4 /CUMM) 3.3 Absolute Monocytes (0.10 - 0.60 /CUMM) 1.5 H Absolute Eosinophils (0.0 - 0.7 /CUMM) 0.1 Absolute Basophils (0.0 - 0.2 /CUMM) 0.1 ESR Westergren (0 - 20 MM) 61 H Last 24 Hours of Chai Results: Status : ADM IN SPEC #: [id number] MAXIMO: 11/26/17 STATUS: RES RECD: 11/26/[address]: Luis HARTLEY,Adolph Wong SOURCE: TRUNK/O.R. ENTR: 11/26/17-[address]: Anya HARTLEY,Eduardo Titus SPDESC: HIP LEFT Gloria HARTLEY,Kenia Felix ORDERED: TRUNK OR CULT COMMENT: ADDITIONAL INFORMATION: SUPERFICIAL LEFT HIP TISSUE CULTURE Procedure Result > GRAM STAIN Final 11/27/17-1304 WHITE BLOOD CELLS FEW OTHER NO ORGANISMS SEEN > TRUNK AREA OR CULTURE Preliminary 11/27/17-1013 Light growth of: GRAM NEGATIVE RODS Identification and sensitivities to follow Called to/Readback by NIKI by LAB.[email or web address] 11/27/17 1008 Recent Imaging Studies: SERVICE DATE: 11/25/17 EXAM TYPE: RAD - XRY-AP PELVIS; XRY-CHEST XRAY, SINGLE VIEW; XRY-HIP 2-3 VIEWS, LEFT EXAMINATION: XR HIP, LEFT XR PELVIS XR CHEST CLINICAL INFORMATION: Status post recent left hip replacement done on 11/14/2017, suspected superimposed infection. COMPARISON: Left hip done on 11/14/2017. TECHNIQUE: Two views of the left hip. Single frontal view of the pelvis and single frontal view of the chest. FINDINGS: LEFT HIP, AND PELVIS: Postsurgical changes of total left hip arthroplasty is noted. The hardware appear intact. Alignment is intact. There is no periprosthetic lucency present. Previously documented soft tissue gas shows near-complete resolution. Incidental note is made of [id number] osteoarthrosis of the right hip. Significant fecal residual is noted within the visualized large bowel. CHEST: Both lungs are symmetrically expanded and are clear. The cardiomediastinal silhouette is within normal limits. Atherosclerotic changes are noted within the aorta. There is no pleural effusion present. No significant change since 09/28/2016. IMPRESSION: 1. Postsurgical changes of total left hip arthroplasty showing intact hardware and satisfactory alignment and no periprosthetic radiolucencies. 2. The chest radiograph shows no acute cardiopulmonary disease. 3. [id number] osteoarthrosis at the right hip. DICTATED BY: Gabino Hagan MD DATE/TIME DICTATED:11/25/171831 VISUAL MERCHANDISER:AMINA DATE/TIME TRANSCRIBED:11/25/171831 CONFIDENTIAL, DO NOT COPY WITHOUT APPROPRIATE AUTHORIZATION. <Electronically signed in Other Vendor System> SIGNED BY: Gabino Hagan MD 11/25/171841 Assessment/Plan ID Impression: 62-year-old female with history of hep C, cervical cancer, ALEXA, CAD, nephrolithiasis who is 13 days status post primary left total hip arthroplasty admitted on 11/25 with L hip pain and drainage. Eval for early L JUSTO infection (likly pathogens usually virulent organisms S. aureus, GNR, anaerobic organisms, or mixed infections); underwent drainage and washout w/ retained prosthesis s/p acetabular liner and femoral head exchange on 11/26; OR culture still pnd GNR (ID and sensitivity pnd). Infected hematoma (11/25 culture + Klebsiella pna, although gm stain revealing polymicrobial infection); Listed allergy to PCN (n/v) Worsening leukocytosis Suggestion: 1.CBC, BMP in am. ESR weekly while on iv abx 2. Continue Cipro 400 mg iv q 12 h and vancomycin 1.5 gm q 12 h pending final OR cultures from 11/26. 3. F/U pathology results.
[2017-11-28 14:08] VITALS: BP 152/50
[2017-11-28 21:33] VITALS: BP 136/56
[2017-11-29 06:35] VITALS: BP 124/46
--- NOTE | 2017-11-29 09:03 | PN- Orthopedic ---
Subjective Subjective: Patient with complaints of pain and left hip that radiates into the left groin, also complains of neck stiffness and soreness to the neck. She has mild diaphoresis that she feels secondary to pain. There is been no fever or flulike illness. No vomiting. Objective Vital Signs and I&Os Vital Signs Date Time Temp Pulse Resp B/P B/P Pulse O2 O2 Flow FiO2 Mean Ox Delivery Rate 11/29 634 98.9 72 18 124/46 91 11/28 2133 98.8 90 18 136/56 93 Room Air 11/28 1408 99.5 86 20 152/50 92 Room Air Intake & Output 11/29 1600 11/29 0800 11/29 0000 11/28 1600 11/28 0800 11/28 0000 Intake Total 740 942 171 2195 Output Total 320 521 200 630 640 Balance 420 -221 -200 -150 710 Intake, IV 500 550 Intake, Oral 240 300 480 800 Number 1 Bowel Movements Output, 20 70 30 40 Drainage Output, Stool 1 Output, Urine 300 450 200 600 600 Patient 250 lb Weight Physical Exam: Well-developed well-nourished no apparent distress. HEENT: Atraumatic, extraocular motion intact Neck: Supple, no lymphadenopathy Respiratory: No respiratory distress Extremities: Positive edema of left lower leg. Left lower extremity hip dressing in place, Dressing with mild amount of thin serous blood-tinged drainage. Hemovac drain with same. Last drain outputs were 30/70/20. Hemovac drain removed and dry sterile dressing applied. Moderate amount of the thin serous blood-tinged drainage was coming from the drain site after the drain was removed and dressing was reinforced. Incision with mild surrounding erythema, incision line is intact with sutures. Moderate thigh swelling No shortening or rotation Hip range of motion is limited and without unexpected pain Neurovascularly intact distally Bilateral calves are supple, nontender. Neuro: Alert and oriented x3 Psych: Mood affect normal, normal memory normal judgment. Skin: Warm and dry, no rash on exposed skin Results Last 48 Hours of Labs: Laboratory Tests 11/28 0800 Chemistry Sodium (137 - 145 mmol/L) 138 Potassium (3.5 - 5.1 mmol/L) 4.2 Chloride (98 - 107 mmol/L) 104 Carbon Dioxide (22 - 30 mmol/L) 27 Anion Gap (5 - 16) 7 BUN (7 - 17 mg/dL) 11 Creatinine (0.5 - 1.0 mg/dL) 0.6 Estimated GFR (>60 ml/min) > 60 BUN/Creatinine Ratio (7 - 25 %) 18.3 C-Reactive Prot, Quant (<1.0 mg/dL) 7.2 H Hematology CBC w Diff NO MAN DIFF REQ WBC (4.8 - 10.8 /CUMM) 16.3 H RBC (4.20 - 5.40 /CUMM) 2.94 L Hgb (12.0 - 16.0 G/DL) 8.6 L Hct (37 - 47 %) 26.4 L MCV (81.0 - 99.0 FL) 89.6 MCH (27.0 - 31.0 PG) 29.2 MCHC (33.0 - 37.0 G/DL) 32.6 L RDW (11.5 - 14.5 %) 14.4 Plt Count (130 - 400 /CUMM) 246 MPV (7.4 - 10.4 FL) 9.0 Gran % (42.2 - 75.2 %) 69.3 Lymphocytes % (20.5 - 51.1 %) 20.0 L Monocytes % (1.7 - 9.3 %) 9.3 Eosinophils % (0 - 5 %) 0.8 Basophils % (0.0 - 2.0 %) 0.6 Absolute Granulocytes (1.4 - 6.5 /CUMM) 11.3 H Absolute Lymphocytes (1.2 - 3.4 /CUMM) 3.3 Absolute Monocytes (0.10 - 0.60 /CUMM) 1.5 H Absolute Eosinophils (0.0 - 0.7 /CUMM) 0.1 Absolute Basophils (0.0 - 0.2 /CUMM) 0.1 ESR Westergren (0 - 20 MM) 61 H Assessment/Plan Assessment/Plan 15 days postop primary left total hip arthroplasty and 3 days postop left hip wound irrigation and debridement with poly-exchange due to wound infection Hemovac drain was removed. Dry sterile dressing applied. Daily dressing changes and when necessary Await final intraoperative cultures, PICC line placement after, likely this afternoon Pain medication as needed Heat to neck and back due to stiffness Eliquis for DVT prophylaxis Follow labs, weekly esr,crp Continue vancomycin and Cipro IV per infectious disease recommendations PT ,wbat Core Measures Venous Thromboembolism VTE Risk Factors Age>40 No Mechanical VTE Prophylaxis d/t N/A MechProphylax Ordered No VTE Pharm Prophylaxis d/t Surgical Contraindication
--- NOTE | 2017-11-29 13:14 | PN- Infect Dx ---
Subjective Subjective: No fever; L hip discomfort improved. No abd pain. C/o constipation. Able to walk w/ a walker. Review of Systems Comments: 12 points reviewed as noted, otherwise negative. Objective Last 24 Hrs of Vital Signs/I&O Vital Signs Date Time Temp Pulse Resp B/P B/P Pulse O2 O2 Flow FiO2 Mean Ox Delivery Rate 11/29 0635 98.9 72 18 124/46 91 11/28 2133 98.8 90 18 136/56 93 Room Air 11/28 1408 99.5 86 20 152/50 92 Room Air Intake & Output 11/29 1600 11/29 0800 11/29 0000 Intake Total 740 300 Output Total 320 521 Balance 420 -221 Intake, IV 500 Intake, Oral 240 300 Number 1 Bowel Movements Output, 20 70 Drainage Output, Stool 1 Output, Urine 300 450 Physical Exam Other Physical Findings: Well-developed well-nourished no apparent distress. HEENT: Atraumatic, sclera anicteric Neck: Supple, no lymphadenopathy Respiratory: No respiratory distress Heart: S1 S2 present, no m/r/g Abd: soft, NT, + BS Extremities: Left lower extremity moderate leg edema. Hip dressing in place. It is tender to palpation. Neuro: Alert and oriented x3 Psych: Mood affect normal, normal memory normal judgment. Skin: Warm and dry, no rash on exposed skin lower extremity hip dressing in place. Decreased thigh swelling. DELROY drain removed Results Last 24 Hours of Lab Results: reviewed Last 24 Hours of Chai Results: SPEC #: [id number] MAXIMO: 11/26/17 STATUS: RES RECD: 11/26/[address]: Luis HARTLEY,Adolph Wong SOURCE: TRUNK/O.R. ENTR: 11/26/[address]: Anya HARTLEY,Eduardo Titus SPDESC: HIP LEFT Gloria HARTLEY,Kenia Felix ORDERED: TRUNK OR CULT COMMENT: ADDITIONAL INFORMATION: SUPERFICIAL LEFT HIP TISSUE CULTURE Procedure Result > GRAM STAIN Final 11/27/17-1304 WHITE BLOOD CELLS FEW OTHER NO ORGANISMS SEEN > TRUNK AREA OR CULTURE Preliminary 11/28/17-1343 1. Light growth of: KLEBSIELLA PNEUMONIAE See [id number] for sensitivities 2. Scant growth of DIPHTHEROIDS GRAM POSITIVE COCCI Identification and sensitivities to follow Preliminary result called to/Readback by NIKI by [email or web address] 11/27/17 1008 Recent Imaging Studies: reviewed Assessment/Plan ID Impression: 62-year-old female with history of hep C, cervical cancer, ALEXA, CAD, nephrolithiasis who is 13 days status post primary left total hip arthroplasty admitted on 11/25 with L hip pain and drainage. Eval for early L JUSTO infection (likely pathogens usually virulent organisms S. aureus, GNR, anaerobic organisms, or mixed infections); underwent drainage and washout w/ retained prosthesis s/p acetabular liner and femoral head exchange on 11/26; OR culture still pnd GPC(ID and sensitivity pnd), diphteroids and Klebsiella pneumonia. Infected hematoma (11/25 culture + Klebsiella pna, although gm stain revealing polymicrobial infection); Listed allergy to PCN (n/v) Worsening leukocytosis; no CBC today Suggestion: 1.CBC, BMP daily for now. ESR weekly while on iv abx 2. Continue Cipro 400 mg iv q 12 h and vancomycin 1.5 gm q 12 h pending final OR cultures from 11/26. Add Flagyl 500 mg iv q 8 h. 3. F/U pathology results. 4. PICC line.
[2017-11-29 14:04] VITALS: BP 114/60
[2017-11-30 07:50] VITALS: BP 104/50
--- NOTE | 2017-11-30 08:54 | PN- Orthopedic ---
See Addendum Subjective Subjective: Reports pain improves with medication, but she is very resistant to stopping the iv morphine. Out of bed with PT, which exacerbates her pain. No shortness of breath. No chest pains. No dizziness. She is concerned about getting a yeast infection, and would like to try probiotics. She understands the necessity of a picc line for continued antibiotic treatment. Objective Vital Signs and I&Os Vital Signs Date Time Temp Pulse Resp B/P B/P Pulse O2 O2 Flow FiO2 Mean Ox Delivery Rate 11/30 0750 98.7 83 20 104/50 96 Room Air 11/29 1404 98.3 79 20 114/60 97 Intake & Output 11/30 1600 11/30 0811/30 0000 11/29 1600 11/29 0800 11/29 0000 Intake Total 780 1140 1020 740 300 Output Total 600 1001 750 320 521 Balance 180 139 270 420 -221 Intake, IV 300 300 220 500 Intake, Oral 840 800 240 300 Intake, Tube 480 Feeding Number 1 Bowel Movements Output, 20 70 Drainage Output, Stool 1 1 Output, Urine 600 1000 750 300 450 Physical Exam: General - alert & oriented x 3. comfortable. no acute distress. Lungs - decreased breath sounds b/l bases Cardiac - s1s2. reg. Abdomen - obese. nontender. Extremities - warm bilaterally. left hip dressing changed. thigh swollen. mattress sutures in place. dressing saturated with serosang drainage. calves soft and nontender b/l. athrombics in place. nvi. Current Medications: Current Medications Sig/Mary Start time Last Medication Dose Route Stop Time Status Admin Apixaban 2.5 MG BID 11/28 1000 AC 11/29 PO 2147 Calcium Carbonate 500 MG Q8P PRN 11/25 1900 AC PO Ciprofloxacin 400 MG Q12 11/270 AC 11/29 Dextrose/Water 200 ML IV 2253 Docusate Sodium 100 MG BID 11/25 2199 AC 11/29 PO 0854 Hydromorphone HCl 2 MG Q4P PRN 11/25 1900 AC PO Hydromorphone HCl 4 MG Q4 HRS NEEDED PRN 11/25 1900 AC 11/30 PO 0646 Lactobacillus 1 CAP BID 11/30 1000 UNVr Acidophilus PO Metronidazole 500 MG Q8H 11/29 2100 AC 11/30 N/A 1 UNIT IV 0646 Metronidazole 500 MG Q8H 11/29 1900 DC N/A 1 UNIT IV Metronidazole 500 MG IQ8 11/29 1600 DC N/A 1 UNIT IV Morphine Sulfate 1 MG Q4P PRN 11/30 0900 UNVr IV Morphine Sulfate 30 MG BID 11/27 2200 AC 11/29 PO 2147 Morphine Sulfate 2 MG Q4P PRN 11/26 2030 DC 11/30 IV 0441 Nicotine 7 MG DAILY 11/25 1849 AC 11/29 TOP 0854 Ondansetron HCl 4 MG Q6P PRN 11/25 1900 AC 11/29 IV 1724 Patient Medication 1 ED ONE ONE 11/29 1730 DC Teaching ED 11/29 1731 Polyethylene Glycol 17 GM DAILY 11/30 1000 AC PO Senna 187 MG AT BEDTIME 11/25 2200 AC 11/28 PO 2229 Vancomycin HCl 1,500 MG Q12H 11/28 1600 AC 11/30 Sodium Chloride 250 ML IV 0429 Results Last 48 Hours of Labs: Laboratory Tests 11/30 0855 Chemistry Sodium Pending Potassium Pending Chloride Pending Carbon Dioxide Pending Anion Gap Pending BUN Pending Creatinine Pending BUN/Creatinine Ratio Pending Hematology CBC w Diff Pending WBC Pending RBC Pending Hgb Pending Hct Pending MCV Pending MCH Pending MCHC Pending RDW Pending Plt Count Pending MPV Pending Assessment/Plan Assessment/Plan This 62 year old female with hx hep c, s/p THR (11/14) is now POD#4 s/p left hip wound irrigation and debridement with poly-exchange due to wound infection tolerating diet wean iv morphine. continue oral dilaudid and ms contin dressing changed continue PT eliquis - dvt ppx add probiotics bowel regime ordered f/u labs and OR cxs continue IV antibiotics PICC line today. will get consent and d/w Adali (triple lumen) f/u ID recommendations d/c planning will d/w Core Measures Venous Thromboembolism VTE Risk Factors Age>40 No Mechanical VTE Prophylaxis d/t N/A MechProphylax Ordered No VTE Pharm Prophylaxis d/t Surgical Contraindication
[2017-11-30 10:56] LABS: ABSOLUTE BASOPHIL COUNT 0.1 /CUMM (0.0-0.2); ABSOLUTE EOSINOPHIL COUNT 0.2 /CUMM (0.0-0.7); ABSOLUTE GRANULOCYTE CT 7.3 /CUMM (1.4-6.5); ABSOLUTE MONOCYTE COUNT 1.1 /CUMM (0.10-0.60); BASOPHIL % 0.5 % (0.0-2.0); EOSINOPHIL % 1.8 % (0-5); GRANULOCYTE % 68.8 % (42.2-75.2); HEMATOCRIT 25.2 % (37-47); MEAN CORPUSCULAR HGB 28.4 PG (27.0-31.0); MEAN CORPUSCULAR HGB CONC 32.2 G/DL (33.0-37.0); MEAN CORPUSCULAR VOLUME 88.2 FL (81.0-99.0); MEAN PLATELET VOLUME 8.7 FL (7.4-10.4); PLATELET COUNT 327 /CUMM (130-400); RBC DISTRIBUTION WIDTH 14.3 % (11.5-14.5); RED BLOOD CELL CT 2.86 /CUMM (4.20-5.40); WHITE BLOOD CELL COUNT 10.6 /CUMM (4.8-10.8)
--- NOTE | 2017-11-30 13:39 | RADIOLOGY REPORT ---
EXAMINATION: XR PORTABLE CHEST CLINICAL INFORMATION: Status post-post PICC placement. COMPARISON: Prior chest radiographs, most recently to. TECHNIQUE: Portable frontal view of the chest was obtained. FINDINGS: No significant abnormality is noted involving the heart, lungs, mediastinum, bony thorax or soft tissues. A right upper extremity PICC is seen with tip positioned in the vicinity of the cavoatrial junction. No pneumothorax is seen. There is mild osteoarthritic change of the bilateral acromioclavicular joints. IMPRESSION: Unremarkable examination. PICC catheter tip is as above, without pneumothorax seen.
[2017-11-30 14:11] VITALS: BP 136/60
--- NOTE | 2017-11-30 15:15 | PN- Infect Dx ---
Subjective Subjective: No new c/o. Denies fever/chills. Constipation. Had one BM yesterday. s/p R PICC placement Review of Systems Comments: 12 points reviewed as noted, otherwise negative Objective Last 24 Hrs of Vital Signs/I&O Vital Signs Date Time Temp Pulse Resp B/P B/P Pulse O2 O2 Flow FiO2 Mean Ox Delivery Rate 11/30 1411 98.2 82 18 136/60 93 11/30 0750 98.7 83 20 104/50 96 Room Air Intake & Output 11/30 1600 11/30 0800 11/30 0000 Intake Total 0712 194 3065 Output Total 107 840 9506 Balance 350 180 139 Intake, IV 200 300 300 Intake, Oral 800 840 Intake, Tube 480 Feeding Output, Stool 1 Output, Urine 732 214 3201 Physical Exam Other Physical Findings: Well-developed well-nourished no apparent distress. HEENT: Atraumatic, sclera anicteric Neck: Supple, no lymphadenopathy Respiratory: No respiratory distress Heart: S1 S2 present, no m/r/g Abd: soft, NT, + BS Extremities: Left lower extremity moderate leg edema. Hip dressing in place. It is tender to palpation. Neuro: Alert and oriented x3 Psych: Mood affect normal, normal memory normal judgment. Skin: Warm and dry, no rash on exposed skin lower extremity hip dressing in place. Improving thigh swelling. Results Last 24 Hours of Lab Results: Laboratory Tests 11/30 0855 Chemistry Sodium (137 - 145 mmol/L) 138 Potassium (3.5 - 5.1 mmol/L) 4.3 Chloride (98 - 107 mmol/L) 101 Carbon Dioxide (22 - 30 mmol/L) 29 Anion Gap (5 - 16) 8 BUN (7 - 17 mg/dL) 9 Creatinine (0.5 - 1.0 mg/dL) 0.7 Estimated GFR (>60 ml/min) > 60 BUN/Creatinine Ratio (7 - 25 %) 12.9 Hematology CBC w Diff NO MAN DIFF REQ WBC (4.8 - 10.8 /CUMM) 10.6 RBC (4.20 - 5.40 /CUMM) 2.86 L Hgb (12.0 - 16.0 G/DL) 8.1 L Hct (37 - 47 %) 25.2 L MCV (81.0 - 99.0 FL) 88.2 MCH (27.0 - 31.0 PG) 28.4 MCHC (33.0 - 37.0 G/DL) 32.2 L RDW (11.5 - 14.5 %) 14.3 Plt Count (130 - 400 /CUMM) 327 MPV (7.4 - 10.4 FL) 8.7 Gran % (42.2 - 75.2 %) 68.8 Lymphocytes % (20.5 - 51.1 %) 18.7 L Monocytes % (1.7 - 9.3 %) 10.2 H Eosinophils % (0 - 5 %) 1.8 Basophils % (0.0 - 2.0 %) 0.5 Absolute Granulocytes (1.4 - 6.5 /CUMM) 7.3 H Absolute Lymphocytes (1.2 - 3.4 /CUMM) 2.0 Absolute Monocytes (0.10 - 0.60 /CUMM) 1.1 H Absolute Eosinophils (0.0 - 0.7 /CUMM) 0.2 Absolute Basophils (0.0 - 0.2 /CUMM) 0.1 Last 24 Hours of Chai Results: SPEC #: [id number] MAXIMO: 11/26/17 STATUS: COMP RECD: 11/26/[address]: Luis HARTLEY,Adolph Wong SOURCE: TRUNK/O.R. ENTR: 11/26/[address]: Anya HARTLEY,Eduardo Titus SPDESC: HIP LEFT Gloria HARTLEY,Kenia Felix ORDERED: TRUNK OR CULT COMMENT: ADDITIONAL INFORMATION: DEEP TISSUE LEFT HIP CULTURE Procedure Result > GRAM STAIN Final 11/27/17-1310 WHITE BLOOD CELLS FEW OTHER NO ORGANISMS SEEN > TRUNK AREA OR CULTURE Final 11/30/17-0859 Light growth of: 1. KLEBSIELLA PNEUMONIAE 2. DIPHTHEROIDS 3. STAPH COAGULASE NEGATIVE Preliminary result called to/Readback by NIKI by LAB.GEOK 11/27/17 1008 K.pneumo Coag Neg RX AB RX AB ------ -- ------ -- AMPICILLIN R R CEFAZOLIN S R AMOX/CLAV AUGM S R AMP/SULB-UNASYN S R CIPROFLOXACIN S GENTAMICIN S TETRACYCLINE S TRIMETH/SULFA S S AZITHROMYCIN R CLINDAMYCIN S ERYTHROMYCIN R OXACILLIN R VANCOMYCIN S 1. KLEBSIELLA PNEUMONIAE RX AB ------ -- AMPICILLIN R CEFAZOLIN S AMOXICILLIN/CLAVULINIC ACID S AMPICILLIN/SULBACTAM S CIPROFLOXACIN S GENTAMICIN S TRIMETHOPRIM/SULFAMETHOXAZOLE S 3. STAPH COAGULASE NEGATIVE RX ABN ------ --- 3. STAPH COAGULASE NEGATIVE RX AB ------ -- AMPICILLIN R CEFAZOLIN R AMOXICILLIN/CLAVULINIC ACID R AMPICILLIN/SULBACTAM R TETRACYCLINE S TRIMETHOPRIM/SULFAMETHOXAZOLE S AZITHROMYCIN R CLINDAMYCIN S ERYTHROMYCIN R OXACILLIN R VANCOMYCIN S Recent Imaging Studies: CXR FINDINGS: No significant abnormality is noted involving the heart, lungs, mediastinum, bony thorax or soft tissues. A right upper extremity PICC is seen with tip positioned in the vicinity of the cavoatrial junction. No pneumothorax is seen. There is mild osteoarthritic change of the bilateral acromioclavicular joints. IMPRESSION: Unremarkable examination. PICC catheter tip is as above, without pneumothorax seen. DICTATED BY: Mario Shaffer MD DATE/TIME DICTATED:11/30/171334 WINDOW DISPLAY DESIGNER:AMINA DATE/TIME TRANSCRIBED:11/30/171334 Assessment/Plan ID Impression: 62-year-old female with history of hep C, cervical cancer, ALEXA, CAD, nephrolithiasis who is status post primary left total hip arthroplasty on 11/14 admitted on 11/25 with L hip pain and drainage. Eval for early L JUSTO infection (likely pathogens usually virulent organisms S. aureus, GNR, anaerobic organisms, or mixed infections); underwent drainage and washout w/ retained prosthesis s/p acetabular liner and femoral head exchange on 11/26; OR culture SCN, diphteroids and Klebsiella pneumonia. Infected hematoma (11/25 culture + Klebsiella pna, although gm stain revealing polymicrobial infection); Listed allergy to PCN (n/v) Leukocytosis; WBC trending down Suggestion: 1. CBC, BMP in am. ESR weekly while on iv abx. Please obtain vancomycin trough 3 /3 in am (30 min before the due dose. 2. Continue D#3 Cipro 400 mg iv q 12 h and vancomycin 1.5 gm q 12; as well as Flagyl 500 mg iv q 8 h D #2. 3. F/U pathology results. 4. PICC line care. 5. After completing 28 days iv abx; life long suppresion oral abx therapy recommended (Bactrim/doxycycline recommended). 6. Obtain hepatitis C RNA viral load. 7. F/U Dr Salas in 2 weeks from discharge.
[2017-11-30 22:07] VITALS: BP 130/70
[2017-12-01 06:52] VITALS: BP 122/62
[2017-12-01 08:47] LABS: ABSOLUTE BASOPHIL COUNT 0.1 /CUMM (0.0-0.2); ABSOLUTE EOSINOPHIL COUNT 0.2 /CUMM (0.0-0.7); ABSOLUTE GRANULOCYTE CT 7.3 /CUMM (1.4-6.5); ABSOLUTE LYMPH COUNT 1.4 /CUMM (1.2-3.4); ABSOLUTE MONOCYTE COUNT 1.4 /CUMM (0.10-0.60); BASOPHIL % 0.6 % (0.0-2.0); EOSINOPHIL % 1.5 % (0-5); GRANULOCYTE % 70.5 % (42.2-75.2); HEMATOCRIT 23.2 % (37-47); MEAN CORPUSCULAR HGB CONC 32.8 G/DL (33.0-37.0); MEAN CORPUSCULAR VOLUME 88.3 FL (81.0-99.0); MEAN PLATELET VOLUME 8.4 FL (7.4-10.4); PLATELET COUNT 316 /CUMM (130-400); RBC DISTRIBUTION WIDTH 14.4 % (11.5-14.5); RED BLOOD CELL CT 2.63 /CUMM (4.20-5.40); WHITE BLOOD CELL COUNT 10.4 /CUMM (4.8-10.8)
--- NOTE | 2017-12-01 13:37 | PN- Orthopedic ---
See Addendum Subjective Subjective: Reports increased swelling in her right arm after picc line placement yesterday. She reports no appetite, ate half of her quesadilla today. She states she refused to work with PT yesterday and today because it exacerbates her pain. Per nursing, PICC was occuled this morning and cathflo was ordered, currently functioning now Objective Vital Signs and I&Os Vital Signs Date Time Temp Pulse Resp B/P B/P Pulse O2 O2 Flow FiO2 Mean Ox Delivery Rate 12/01 1350 99.0 78 20 126/60 96 12/01 0652 98.5 80 22 122/62 93 Room Air 11/30 2206 99.1 82 20 130/70 95 Intake & Output 12/01 1600 12/01 0800 12/01 0000 11/30 1600 11/30 0811/30 0000 Intake Total 870 245 573 8833 780 1140 Output Total 600 350 583 560 3758 Balance 870 -130 250 350 180 139 Intake, IV 250 470 200 300 300 Intake, Oral 620 600 800 840 Intake, Tube 480 Feeding Number 2 Bowel Movements Output, Stool 1 Output, Urine 600 350 298 812 0965 Physical Exam: General - resting comfortably awake an alert in NAD Lungs - diminished breath sounds B/L Cardiac - S1S2 Abdomen - obese, nontender. Extremities - left hip dressing c/d/i with surrounding swelling, alps in place, no significant edema or calf tenderness, motor and sensory intact. RUE PICC line in place with significant swelling, nontender to palpation. Current Medications: Current Medications Sig/Mary Start time Last Medication Dose Route Stop Time Status Admin Alteplase, 2 MG ONE ONE 12/01 06 DC 12/01 Recombinant IV 12/01 0601 0707 Apixaban 2.5 MG BID 11/28 1000 AC 12/01 PO 0908 Calcium Carbonate 500 MG Q8P PRN 11/25 1900 AC PO Ciprofloxacin 400 MG Q12 11/27 2199 AC 12/01 Dextrose/Water 200 ML IV 09 Docusate Sodium 100 MG BID 11/25 220 AC 11/30 PO 2236 Hydromorphone HCl 2 MG Q4P PRN 11/25 1900 AC PO Hydromorphone HCl 4 MG Q4 HRS NEEDED PRN 11/25 1900 AC 11/30 PO 204 Lactobacillus 1 CAP BID 11/30 1000 AC 12/01 Acidophilus PO 0908 Metronidazole 500 MG Q8H 11/29 2100 AC 12/01 N/A 1 UNIT IV 1313 Morphine Sulfate 1 MG Q4P PRN 11/30 0900 AC 12/01 IV 1311 Morphine Sulfate 30 MG BID 11/27 2200 AC 12/01 PO 0908 Nicotine 7 MG DAILY 11/25 1849 AC 12/01 TOP 0908 Ondansetron HCl 4 MG .STK-MED ONE 11/30 2252 DC IM 11/30 225 Ondansetron HCl 4 MG Q6P PRN 11/25 1900 AC 11/30 IV 2254 Polyethylene Glycol 17 GM DAILY 11/30 1000 AC PO Senna 187 MG AT BEDTIME 11/25 220 AC 11/28 PO 2229 Vancomycin HCl 1,500 MG Q12H 11/28 1600 AC 12/01 Sodium Chloride 250 ML IV 0502 Results Last 48 Hours of Labs: Laboratory Tests 12/01 12/01 0545 0315 Chemistry Sodium (137 - 145 mmol/L) 136 L Potassium (3.5 - 5.1 mmol/L) 4.3 Chloride (98 - 107 mmol/L) 100 Carbon Dioxide (22 - 30 mmol/L) 31 H Anion Gap (5 - 16) 4 L BUN (7 - 17 mg/dL) 8 Creatinine (0.5 - 1.0 mg/dL) 0.7 Estimated GFR (>60 ml/min) > 60 BUN/Creatinine Ratio (7 - 25 %) 11.4 Hematology CBC w Diff NO MAN DIFF REQ WBC (4.8 - 10.8 /CUMM) 10.4 RBC (4.20 - 5.40 /CUMM) 2.63 L Hgb (12.0 - 16.0 G/DL) 7.6 L Hct (37 - 47 %) 23.2 L MCV (81.0 - 99.0 FL) 88.3 MCH (27.0 - 31.0 PG) 29.0 MCHC (33.0 - 37.0 G/DL) 32.8 L RDW (11.5 - 14.5 %) 14.4 Plt Count (130 - 400 /CUMM) 316 MPV (7.4 - 10.4 FL) 8.4 Gran % (42.2 - 75.2 %) 70.5 Lymphocytes % (20.5 - 51.1 %) 13.8 L Monocytes % (1.7 - 9.3 %) 13.6 H Eosinophils % (0 - 5 %) 1.5 Basophils % (0.0 - 2.0 %) 0.6 Absolute Granulocytes (1.4 - 6.5 /CUMM) 7.3 H Absolute Lymphocytes (1.2 - 3.4 /CUMM) 1.4 Absolute Monocytes (0.10 - 0.60 /CUMM) 1.4 H Absolute Eosinophils (0.0 - 0.7 /CUMM) 0.2 Absolute Basophils (0.0 - 0.2 /CUMM) 0.1 ESR Westergren (0 - 20 MM) 100 H Serology HCV RNA (PCR) IUs/ml Pending HCV RNA PCR log IUs/ml Pending Toxicology Vancomycin Trough (10.0 - 20.0 ug/mL) 16.2 03/02 0855 Chemistry Sodium (137 - 145 mmol/L) 138 Potassium (3.5 - 5.1 mmol/L) 4.3 Chloride (98 - 107 mmol/L) 101 Carbon Dioxide (22 - 30 mmol/L) 29 Anion Gap (5 - 16) 8 BUN (7 - 17 mg/dL) 9 Creatinine (0.5 - 1.0 mg/dL) 0.7 Estimated GFR (>60 ml/min) > 60 BUN/Creatinine Ratio (7 - 25 %) 12.9 Hematology CBC w Diff NO MAN DIFF REQ WBC (4.8 - 10.8 /CUMM) 10.6 RBC (4.20 - 5.40 /CUMM) 2.86 L Hgb (12.0 - 16.0 G/DL) 8.1 L Hct (37 - 47 %) 25.2 L MCV (81.0 - 99.0 FL) 88.2 MCH (27.0 - 31.0 PG) 28.4 MCHC (33.0 - 37.0 G/DL) 32.2 L RDW (11.5 - 14.5 %) 14.3 Plt Count (130 - 400 /CUMM) 327 MPV (7.4 - 10.4 FL) 8.7 Gran % (42.2 - 75.2 %) 68.8 Lymphocytes % (20.5 - 51.1 %) 18.7 L Monocytes % (1.7 - 9.3 %) 10.2 H Eosinophils % (0 - 5 %) 1.8 Basophils % (0.0 - 2.0 %) 0.5 Absolute Granulocytes (1.4 - 6.5 /CUMM) 7.3 H Absolute Lymphocytes (1.2 - 3.4 /CUMM) 2.0 Absolute Monocytes (0.10 - 0.60 /CUMM) 1.1 H Absolute Eosinophils (0.0 - 0.7 /CUMM) 0.2 Absolute Basophils (0.0 - 0.2 /CUMM) 0.1 Assessment/Plan Assessment/Plan 62 F with hx hep c, s/p THR on 11/14, who is POD 5 s/p left hip wound irrigation and debridement with poly-exchange due to wound infection. Final cx reveal kebsiella pneumoniae, diptheroids and staph coag neg with RUE swelling s/p PICC line insertion UE doppler to r/o DVT Reg diet IV abx per ID - flagyl, vanco, cipro Pain meds prn, wean IV wean Cont dry dressing changes daily Encourage PT, WBAT DVT ppx - eliquis Bowel regime on board Encourage IS Labs reviewed, monitor H&H ESR weekly while on IV abx F/u path/hepc rna viral load F/u ID recommendations Will require life long oral bactrim after 28 day completion of IV abx per ID D/c planning to STR Will d/w Core Measures Venous Thromboembolism VTE Risk Factors Age>40 No Mechanical VTE Prophylaxis d/t N/A MechProphylax Ordered No VTE Pharm Prophylaxis d/t Surgical Contraindication
[2017-12-01 13:50] VITALS: BP 126/60
--- NOTE | 2017-12-01 15:16 | PN- Infect Dx ---
Subjective Subjective: C/O L hip pain. PICC line difficult to flush; patient states having pain R UE; also increased swelling. Review of Systems Comments: 12 points reviewed as noted, otherwise negative Objective Last 24 Hrs of Vital Signs/I&O Vital Signs Date Time Temp Pulse Resp B/P B/P Pulse O2 O2 Flow FiO2 Mean Ox Delivery Rate 12/01 1350 99.0 78 20 126/60 96 12/01 0652 98.5 80 22 122/62 93 Room Air 11/30 2207 99.1 82 20 130/70 95 Intake & Output 12/01 1600 12/01 0800 12/01 0000 Intake Total 870 470 600 Output Total 600 350 Balance 870 -130 250 Intake, IV 250 470 Intake, Oral 620 600 Number 2 Bowel Movements Output, Urine 600 350 Physical Exam Other Physical Findings: Well-developed well-nourished no apparent distress. HEENT: Atraumatic, sclera anicteric Neck: Supple, no JVD Respiratory: No respiratory distress Heart: S1 S2 present, no m/r/g Abd: soft, NT, + BS Extremities: Left lower extremity moderate leg edema. Hip dressing in place. R UE PICC in place; swelling R UE. Neuro: Alert and oriented x3 Skin: Warm and dry, no rash on exposed skin lower extremity hip dressing in place. Improving thigh swelling. Results Last 24 Hours of Lab Results: Laboratory Tests 12/01 12/01 0545 0315 Chemistry Sodium (137 - 145 mmol/L) 136 L Potassium (3.5 - 5.1 mmol/L) 4.3 Chloride (98 - 107 mmol/L) 100 Carbon Dioxide (22 - 30 mmol/L) 31 H Anion Gap (5 - 16) 4 L BUN (7 - 17 mg/dL) 8 Creatinine (0.5 - 1.0 mg/dL) 0.7 Estimated GFR (>60 ml/min) > 60 BUN/Creatinine Ratio (7 - 25 %) 11.4 Hematology CBC w Diff NO MAN DIFF REQ WBC (4.8 - 10.8 /CUMM) 10.4 RBC (4.20 - 5.40 /CUMM) 2.63 L Hgb (12.0 - 16.0 G/DL) 7.6 L Hct (37 - 47 %) 23.2 L MCV (81.0 - 99.0 FL) 88.3 MCH (27.0 - 31.0 PG) 29.0 MCHC (33.0 - 37.0 G/DL) 32.8 L RDW (11.5 - 14.5 %) 14.4 Plt Count (130 - 400 /CUMM) 316 MPV (7.4 - 10.4 FL) 8.4 Gran % (42.2 - 75.2 %) 70.5 Lymphocytes % (20.5 - 51.1 %) 13.8 L Monocytes % (1.7 - 9.3 %) 13.6 H Eosinophils % (0 - 5 %) 1.5 Basophils % (0.0 - 2.0 %) 0.6 Absolute Granulocytes (1.4 - 6.5 /CUMM) 7.3 H Absolute Lymphocytes (1.2 - 3.4 /CUMM) 1.4 Absolute Monocytes (0.10 - 0.60 /CUMM) 1.4 H Absolute Eosinophils (0.0 - 0.7 /CUMM) 0.2 Absolute Basophils (0.0 - 0.2 /CUMM) 0.1 ESR Westergren (0 - 20 MM) 100 H Serology HCV RNA (PCR) IUs/ml Pending HCV RNA PCR log IUs/ml Pending Toxicology Vancomycin Trough (10.0 - 20.0 ug/mL) 16.2 Last 24 Hours of Chai Results: SPEC #: [id number] MAXIMO: 11/26/17 STATUS: COMP RECD: 11/26/[address]: Luis HARTLEY,Adolph Wong SOURCE: TRUNK/O.R. ENTR: 11/26/[address]: Anya HARTLEY,Eduardo Titus SPDESC: HIP LEFT Gloria HARTLEY,Kneia Felix ORDERED: TRUNK OR CULT COMMENT: ADDITIONAL INFORMATION: DEEP TISSUE LEFT HIP CULTURE Procedure Result > GRAM STAIN Final 11/27/17-1310 WHITE BLOOD CELLS FEW OTHER NO ORGANISMS SEEN > TRUNK AREA OR CULTURE Final 11/30/17-0859 Light growth of: 1. KLEBSIELLA PNEUMONIAE 2. DIPHTHEROIDS 3. STAPH COAGULASE NEGATIVE Preliminary result called to/Readback by NIKI by LAB.[email or web address] 11/27/17 1008 K.pneumo Coag Neg RX AB RX AB ------ -- ------ -- AMPICILLIN R R CEFAZOLIN S R AMOX/CLAV AUGM S R AMP/SULB-UNASYN S R CIPROFLOXACIN S GENTAMICIN S TETRACYCLINE S TRIMETH/SULFA S S AZITHROMYCIN R CLINDAMYCIN S ERYTHROMYCIN R OXACILLIN R VANCOMYCIN S 1. KLEBSIELLA PNEUMONIAE RX AB ------ -- AMPICILLIN R CEFAZOLIN S AMOXICILLIN/CLAVULINIC ACID S AMPICILLIN/SULBACTAM S CIPROFLOXACIN S GENTAMICIN S TRIMETHOPRIM/SULFAMETHOXAZOLE S 3. STAPH COAGULASE NEGATIVE RX ABN ------ --- 3. STAPH COAGULASE NEGATIVE RX AB ------ -- AMPICILLIN R CEFAZOLIN R AMOXICILLIN/CLAVULINIC ACID R AMPICILLIN/SULBACTAM R TETRACYCLINE S TRIMETHOPRIM/SULFAMETHOXAZOLE S AZITHROMYCIN R CLINDAMYCIN S ERYTHROMYCIN R OXACILLIN R VANCOMYCIN S Recent Imaging Studies: reviewed Assessment/Plan ID Impression: 62-year-old female with history of hep C (treated), cervical cancer, ALEXA, CAD, nephrolithiasis who is status post primary left total hip arthroplasty on 11/14 admitted on 11/25 with L hip pain and drainage. Early L JUSTO infection; underwent drainage and washout w/ retained prosthesis s/p acetabular liner and femoral head exchange on 11/26; OR culture SCN, diphteroids and Klebsiella pneumonia. Infected hematoma (11/25 culture + Klebsiella pna, although gm stain revealing polymicrobial infection); Listed allergy to PCN (n/v) Leukocytosis; WBC trending down R UE swelling Suggestion: 1. CBC, BMP in am. ESR weekly while on iv abx. F/U pathology results and hepatitis C RNA viral load (pnd). 2. Continue D#4 Cipro 400 mg iv q 12 h and vancomycin 1.5 gm q 12; as well as Flagyl 500 mg iv q 8 h D #3. of note vanco trough therapeutic today at 16.2; repeat trough 3/5 in am (30 min before the due dose). 3. R UE US r/o DVT to be considered. 4. After completing 28 days iv abx; life long suppresion oral abx therapy recommended (Bactrim).
--- NOTE | 2017-12-01 17:07 | ULTRASOUND REPORT ---
EXAMINATION: Right upper EXTREMITY VENOUS ULTRASOUND CLINICAL INFORMATION: Swelling COMPARISON: None. TECHNIQUE: Doppler spectral analysis and color flow Doppler imaging was performed of the lower extremity. Compression and augmentation maneuvers were performed. FINDINGS: The RIGHT subclavian, axillary, IJ, basilic, brachial, cephalic veins well-identified and normal. They demonstrate normal compressibility and color fill-in without evidence of venous thrombosis. IMPRESSION: No evidence for RIGHT upper extremity deep vein thrombosis.
[2017-12-01 22:22] VITALS: BP 160/72
--- NOTE | 2017-12-01 23:57 | Event Note ---
Event Note Event Note: Called by Nursing that pt complains of chest pain. She states it is a different pain than she has had in the past. She feels sob although her RR is 16-18 and her Sat currently is 95%on RA. All vitals are stable No diaphoresis, no nausea Stat EKG ordered - WNL, Reg sinus Stat labs - WNL, troponin negative Pt evaluated at 1145pm and is sleeping soundly, no further complaints per nursing
[2017-12-02 08:00] VITALS: BP 158/70
[2017-12-02 08:56] LABS: ABSOLUTE BASOPHIL COUNT 0.1 /CUMM (0.0-0.2); ABSOLUTE EOSINOPHIL COUNT 0.2 /CUMM (0.0-0.7); ABSOLUTE GRANULOCYTE CT 5.8 /CUMM (1.4-6.5); ABSOLUTE LYMPH COUNT 2.3 /CUMM (1.2-3.4); BASOPHIL % 0.7 % (0.0-2.0); EOSINOPHIL % 2.2 % (0-5); HEMATOCRIT 24.9 % (37-47); MEAN CORPUSCULAR HGB CONC 32.9 G/DL (33.0-37.0); MEAN PLATELET VOLUME 8.2 FL (7.4-10.4); PLATELET COUNT 374 /CUMM (130-400); RBC DISTRIBUTION WIDTH 14.4 % (11.5-14.5); RED BLOOD CELL CT 2.83 /CUMM (4.20-5.40); WHITE BLOOD CELL COUNT 9.4 /CUMM (4.8-10.8)
[2017-12-02 14:00] VITALS: BP 136/66
--- NOTE | 2017-12-02 14:54 | PN- Infect Dx ---
Subjective Subjective: No fever; able to ambulate. Constipation. CP earlier today. Review of Systems Comments: 12 points reviewed as noted, otherwise negative. Objective Last 24 Hrs of Vital Signs/I&O Vital Signs Date Time Temp Pulse Resp B/P B/P Pulse O2 O2 Flow FiO2 Mean Ox Delivery Rate 12/02 08 98.6 90 22 158/70 96 Room Air 12/01 2222 99.2 90 22 160/72 95 Room Air Intake & Output 12/02 1600 12/02 0800 12/02 0000 Intake Total Output Total Balance Number 1 Bowel Movements Physical Exam Other Physical Findings: Well-developed well-nourished no apparent distress. HEENT: Atraumatic, sclera anicteric Neck: Supple, no JVD Respiratory: No respiratory distress Heart: S1 S2 present, no m/r/g Abd: soft, NT, + BS Extremities: Left lower extremity moderate leg edema. Hip dressing in place. R UE PICC in place; swelling R UE. Neuro: Alert and oriented x3 Skin: Warm and dry, no rash on exposed skin lower extremity hip dressing in place. Improving thigh swelling. Results Last 24 Hours of Lab Results: Laboratory Tests 12/02 12/01 12/01 0700 2215 2215 Chemistry Sodium (137 - 145 mmol/L) 142 137 Potassium (3.5 - 5.1 mmol/L) 4.0 3.9 Chloride (98 - 107 mmol/L) 105 101 Carbon Dioxide (22 - 30 mmol/L) 30 31 H Anion Gap (5 - 16) 7 6 BUN (7 - 17 mg/dL) 8 10 Creatinine (0.5 - 1.0 mg/dL) 0.7 0.8 Estimated GFR (>60 ml/min) > 60 > 60 BUN/Creatinine Ratio (7 - 25 %) 11.4 12.5 Magnesium (1.6 - 2.3 mg/dL) 2.2 Troponin I (< 0.11 ng/ml) < 0.01 Hematology CBC w Diff NO MAN DIFF REQ WBC (4.8 - 10.8 /CUMM) 9.4 RBC (4.20 - 5.40 /CUMM) 2.83 L Hgb (12.0 - 16.0 G/DL) 8.2 L Hct (37 - 47 %) 24.9 L MCV (81.0 - 99.0 FL) 88.0 MCH (27.0 - 31.0 PG) 29.0 MCHC (33.0 - 37.0 G/DL) 32.9 L RDW (11.5 - 14.5 %) 14.4 Plt Count (130 - 400 /CUMM) 374 MPV (7.4 - 10.4 FL) 8.2 Gran % (42.2 - 75.2 %) 62.0 Lymphocytes % (20.5 - 51.1 %) 24.1 Monocytes % (1.7 - 9.3 %) 11.0 H Eosinophils % (0 - 5 %) 2.2 Basophils % (0.0 - 2.0 %) 0.7 Absolute Granulocytes (1.4 - 6.5 /CUMM) 5.8 Absolute Lymphocytes (1.2 - 3.4 /CUMM) 2.3 Absolute Monocytes (0.10 - 0.60 /CUMM) 1.0 H Absolute Eosinophils (0.0 - 0.7 /CUMM) 0.2 Absolute Basophils (0.0 - 0.2 /CUMM) 0.1 Last 24 Hours of Chai Results: SPEC #: [id number] MAXIMO: 11/26/17 STATUS: COMP RECD: 11/26/[address]: Luis HARTLEY,Adolph Wong SOURCE: TRUNK/O.R. ENTR: 11/26/17 [facility] DR: Anya HARTLEY,Eduardo Titus SPDESC: HIP LEFT Gloria HARTLEY,Kenia Felix ORDERED: TRUNK OR CULT COMMENT: ADDITIONAL INFORMATION: DEEP TISSUE LEFT HIP CULTURE Procedure Result > GRAM STAIN Final 11/27/17-1310 WHITE BLOOD CELLS FEW OTHER NO ORGANISMS SEEN > TRUNK AREA OR CULTURE Final 11/30/17-0859 Light growth of: 1. KLEBSIELLA PNEUMONIAE 2. DIPHTHEROIDS 3. STAPH COAGULASE NEGATIVE Preliminary result called to/Readback by NIKI by LAB.GEOK 11/27/17 1008 K.pneumo Coag Neg RX AB RX AB ------ -- ------ -- AMPICILLIN R R CEFAZOLIN S R AMOX/CLAV AUGM S R AMP/SULB-UNASYN S R CIPROFLOXACIN S GENTAMICIN S TETRACYCLINE S TRIMETH/SULFA S S AZITHROMYCIN R CLINDAMYCIN S ERYTHROMYCIN R OXACILLIN R VANCOMYCIN S 1. KLEBSIELLA PNEUMONIAE RX AB ------ -- AMPICILLIN R CEFAZOLIN S AMOXICILLIN/CLAVULINIC ACID S AMPICILLIN/SULBACTAM S CIPROFLOXACIN S GENTAMICIN S TRIMETHOPRIM/SULFAMETHOXAZOLE S 3. STAPH COAGULASE NEGATIVE RX ABN ------ --- 3. STAPH COAGULASE NEGATIVE RX AB ------ -- AMPICILLIN R CEFAZOLIN R AMOXICILLIN/CLAVULINIC ACID R AMPICILLIN/SULBACTAM R TETRACYCLINE S TRIMETHOPRIM/SULFAMETHOXAZOLE S AZITHROMYCIN R CLINDAMYCIN S ERYTHROMYCIN R OXACILLIN R VANCOMYCIN S Recent Imaging Studies: DUS R LE IMPRESSION: No evidence for RIGHT upper extremity deep vein thrombosis. DICTATED BY: Jed Valdovinos MD DATE/TIME DICTATED:12/01/171700 [employer]:AMINA DATE/TIME TRANSCRIBED:12/01/171700 Assessment/Plan ID Impression: 62-year-old female with history of hep C (treated), cervical cancer, ALEXA, CAD, nephrolithiasis who is status post primary left total hip arthroplasty on 11/14 admitted on 11/25 with L hip pain and drainage. Early L JUSTO infection; underwent drainage and washout w/ retained prosthesis s/p acetabular liner and femoral head exchange on 11/26; OR culture SCN, diphteroids and Klebsiella pneumonia. If ESR trending up, patient develops fever, drainage L hip 2 step procedure prosthesis removal recommended. Infected hematoma (11/25 culture + Klebsiella pna, although gm stain revealing polymicrobial infection); Listed allergy to PCN (n/v) Leukocytosis; WBC trending down R UE swelling Suggestion: 1. CBC, BMP, ESR weekly while on iv abx; next due 12/03. F/U pathology results and hepatitis C RNA viral load (pnd). 2. Continue D#02/25 Cipro 400 mg iv q 12 h and vancomycin 1.5 gm q 12; as well as Flagyl 500 mg iv q 8 h D #4. 3. Most recent vanco trough therapeutic at 16.2 on 12/01; repeat trough 3/6 in am (30 min before the due dose); then weekly providing kidney function stable and trough therapeutic. 4. If clinical coure favorable, after completing 28 days iv abx; life long suppresion oral abx therapy recommended (Bactrim). 5. Dr. Salas back tomorrow; f/u as OP w/ Dr. Salas within 2-3 weeks from discharge.
--- NOTE | 2017-12-02 17:21 | PN- Orthopedic ---
Subjective Subjective: Pt was sleeping when i first came to see her. When i came back in the afternoon she was sitting in bed eating dinner. COmplains of hip pain but says she is trying to wean herself off the narcotics. I encouraged her to stop taking the IV meds and switch to just PO meds. She is ambulating, working with PT. had several BM today, not diarrhea. I encouraged her to take the ordered probiotic as she is on several antibiotics. Denies paresthesias. Objective Vital Signs and I&Os Vital Signs Date Time Temp Pulse Resp B/P B/P Pulse O2 O2 Flow FiO2 Mean Ox Delivery Rate 12/02 1400 98.2 86 20 136/66 95 Room Air 12/02 0800 98.6 90 22 158/70 96 Room Air 12/01 2222 99.2 90 22 160/72 95 Room Air Intake & Output 12/02 1600 12/02 0800 12/02 0000 12/01 1600 12/01 0800 12/01 0000 Intake Total 1070 870 470 600 Output Total 600 350 Balance 1070 870 -130 250 Intake, IV 450 250 470 Intake, Oral 620 620 600 Number 1 1 2 Bowel Movements Output, Urine 600 350 Physical Exam: gen- NAD resp- clear cardio- RRR abd- obese, +bs, nontender ext- left hip dressing clean and dry as RN had just changed it. insicion with sutures in place, unable to express drainage, no surrounding erythema. distal sensory and motor function intact. no calf tenderness. no significant edema Assessment/Plan Assessment/Plan 62 F with hx hep c, s/p THR on 11/14, who is POD 5 s/p left hip wound irrigation and debridement with poly-exchange due to wound infection. Final cx reveal kebsiella pneumoniae, diptheroids and staph coag neg Reg diet IV abx per ID - flagyl, vanco, cipro Pain meds prn, wean IV wean Cont dry dressing changes daily Encourage PT, WBAT DVT ppx - eliquis Bowel regime on board and probiotic Encourage IS Labs reviewed, monitor H&H ESR weekly while on IV abx F/u path/hepc rna viral load F/u ID recommendations Will require life long oral bactrim after 28 day completion of IV abx per ID Core Measures Venous Thromboembolism VTE Risk Factors Age>40 No Mechanical VTE Prophylaxis d/t N/A MechProphylax Ordered No VTE Pharm Prophylaxis d/t Surgical Contraindication
[2017-12-02 21:10] VITALS: BP 110/58
--- NOTE | 2017-12-02 21:29 | Event Note ---
Event Note Event Note: called to room by nurse brayan pt complaining of left leg numbness that goes from her lateral thigh to medial calf to dorsum of foot. She says it improves when she gets up and walks. She states shes had it all day but that she just didnt tell me earlier. On exam her thigh is soft. Her DP pulse is 2+ bilaterally. legs and feet are warm. Mild, 1+, lower ext edema bilaterally, no erythema. Distal sensory and motor function intact. I told pt that this is most likely positional and that if it was compartment syndrome it would likely not improve with ambulation. I rec frequent ambulation and to try small changes in position. Dr. Smith aware and he agrees.
[2017-12-03 06:56] VITALS: BP 116/54
--- NOTE | 2017-12-03 12:23 | Patient Discharge Instructions ---
Discharge Instructions General Discharge Information You were seen/treated for: Infection of total hip arthroplasty You had these procedures: Poly-exchange of left total hip arthroplasty Watch for these problems: Fever greater than 101, chills, wound redness or drainage, worsening pain despite pain medications, inability to bear weight on operative leg Other wound care: Please keep wound clean and dry. No ointments or lotions of any type on or near incision. You may shower. Do not soak your wound- no tub baths or swimming. Special Instructions: Take antibiotics and anticoagulation as directed. weekly blood work to Drs. Salas and Luis, starting 12/10/17 (CBC, ESR, BUN/Cr , Vanco trough) Diet Recommended Diet: Regular Activity Activity Limited to: Weight bear as tolerated Additional ACTIVITY Info: Use assistive devices as needed Acute Coronary Syndrome Inclusion Criteria At DC or during hospital stay patient has or had the following: ACS DIAGNOSIS No Discharge Core Measures Meds if any: Prescribed or Continued at Discharge Meds if any: NOT Prescribed or Continued at Discharge Congestive Heart Failure Inclusion Criteria At DC or during hospital stay patient has or had the following: CHF DIAGNOSIS No Discharge Core Measures Meds if any: Prescribed or Continued at Discharge Meds if any: NOT Prescribed or Continued at Discharge Cerebrovascular accident Inclusion Criteria At DC or during hospital stay patient has or had the following: CVA/TIA Diagnosis No Discharge Core Measures Meds if any: Prescribed or Continued at Discharge Meds if any: NOT Prescribed or Continued at Discharge Venous thromboembolism Inclusion Criteria VTE Diagnosis No VTE Type NONE VTE Confirmed by (Test) NONE Discharge Core Measures - Per Current guidelines, there needs to be overlap - treatment for the first 5 days of Warfarin therapy. - If discharged on Warfarin prior to 5 days of - overlap therapy, the patient will need to be - assessed for post discharge needs including - *Post discharge parental anticoagulation - *Warfarin and/or parental anticoagulation education - *Follow up date to check INR post discharge At least 5 days overlap therapy as Inpatient No Meds if any: Prescribed or Continued at Discharge Note: Overlap Therapy is Warfarin and Anticoagulant Meds if any: NOT Prescribed or Continued at Discharge
--- NOTE | 2017-12-03 13:44 | PN- Infect Dx ---
Subjective Subjective: Afebrile. She complains of pain in the left hip. Objective Last 24 Hrs of Vital Signs/I&O Vital Signs Date Time Temp Pulse Resp B/P B/P Pulse O2 O2 Flow FiO2 Mean Ox Delivery Rate 12/03 1230 Room Air 12/03 1219 Room Air 12/03 0656 98.0 82 18 116/54 93 12/02 2225 99.7 12/02 2110 85 18 110/58 98 Room Air 12/02 1400 98.2 86 20 136/66 95 Room Air Intake & Output 12/03 1600 12/03 0800 12/03 0000 Intake Total 500 200 Output Total Balance 500 200 Intake, IV 500 200 Number 1 Bowel Movements Physical Exam Other Physical Findings: She appears comfortable in no acute distress Extremities left hip incision with mild erythema, with retention sutures in place, with drainage on the dressing; PICC in the right upper extremity with no inflammation at the site; 1+ edema both lower extremities Results Last 24 Hours of Lab Results: No labs from today Last 24 Hours of Chai Results: No new cultures Assessment/Plan ID Impression: Stable, status post debridement of the left hip, with retention of the prosthesis, 1 week ago for an infected left hip prosthesis secondary to Klebsiella and coag-negative Staph, with diphtheroids, also isolated from the OR culture, most likely representing a contaminant. She remains afebrile with white blood cell count now normal on Vancomycin, Flagyl and Ciprofloxacin but, based on her OR cultures, her antibiotics should be further adjusted. She will need a 6 week course of IV antibiotics, followed by a 3 month course of oral antibiotics, after which she can be followed off antibiotics. Have discussed the possibility that her infection may not be eradicated without removal of the prosthesis and that, if her infection does relapse, she will then require removal of the prosthesis with reimplantation after another course of antibiotics. Suggestion: 1. Discontinue Ciprofloxacin 2. Discontinue Flagyl 3. Begin Cefazolin 2 g IV every 8 hours until January 08, after which would begin Bactrim DS 1 po every 12 hours for 3 months 4. Add Rifampin 450 mg po every 12 hours, which will need to be continued until April 09 5. Continue Vancomycin until January 08 6. Weekly CBC, ESR, BUN/creatinine and Vancomycin trough level while on Vancomycin
[2017-12-03 14:42] VITALS: BP 150/56
[2017-12-03] MEDS ORDERED: BACTRIM DS TAB1 EACH PO (14:49)
[2017-12-03] MEDS ORDERED: HYDROMORPHONE HC2 M1 PO (14:49)
[2017-12-03] MEDS ORDERED: ELIQUIS2.5 M1 PO (14:49)
[2017-12-03] MEDS ORDERED: VANCO 1.51.5 GM/150 IV (14:49)
[2017-12-03] MEDS ORDERED: CEFAZOLIN2 GM/100 M IV (14:49)
[2017-12-03] MEDS ORDERED: DOCUSATE SODIU100 M3 PO (14:49)
[2017-12-03] MEDS ORDERED: MIRALAX119 GM PO (14:49)
[2017-12-03] MEDS ORDERED: MORPHINE SULFAT15 M3 PO (14:49)
[2017-12-03] MEDS ORDERED: RIFADIN300 MG PO (14:49)
--- NOTE | 2017-12-03 14:58 | Surgical Discharge Summary ---
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 Acute Rehab Who Do You Live With? Family Services at Home: None What is Your Primary Language? [place] Review of Systems: see H&P Hospital Course Course Attending Physician: Adolph Smith Primary Care Physician: Gloria HARTLEY,Kenia Felix Hospital Course: 59-year-old female admitted through the emergency room on 11/25/2017 with complaints of left hip pain and drainage from her wound. She previously underwent left total hip replacement by Dr. Faith on 11/14/2017. She had been residing in a rehabilitation facility postoperatively. She noticed drainage coming from her incision and sought treatment. She was taken to the operating room on 11/26/2017 and underwent incision and drainage of an infected hematoma with poly-exchange of her total hip arthroplasty. Postoperatively she has done well. She is recovered on the surgical floor. Infectious disease has been consulted and made extensive antibiotic recommendations. He does have a functioning PICC line in place and will be discharged on both PO and IV medications (see below). Her pain is uncontrolled with oral pain medications. She is voiding without difficulty. She has been out of bed with physical therapy though does still require rehabilitation in a rehabilitation center. Overall she is stable for discharge from hospital. Weightbearing status is weightbearing as tolerated left lower extremity. Anticoagulation is Eliquis 2.5 mg twice a day for 6 weeks. Per Infectious disease: -Cefazolin 2 g IV every 8 hours, start date now, stop date 01/08/2018. -Bactrim DS 1 tab by mouth every 12 hours, start date 01/09/2018, stop date 08/2018 -Rifampin 450 mg by mouth every 12 hours, start date now, stop date 04/09/2018 -Vancomycin 1500 mg IV every 12 hours, start date now, stop date 01/08/2018 WEEKLY labs, start Sunday12/10/17: -CBC -ESR -BUN/Cr -Vanco trough Allergies: Coded Allergies: nickel (RASH 11/10/17) Penicillins (Intermediate, FAINTED, VOMITING AND HOSPITALIZED 08/18/17) Significant Procedures: Surgery Date: 11/26/17 Name of Procedure: Irrigation debridement left hip and evacuation of hematoma Exchange of polyethylene liner and femoral head Pre-Operative Diagnosis: 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 Smith in 1 week. See Griffin Salas MD in 1 week Medications at Discharge Discharge Medications: Stop taking the following medications: [IMMUNE SUPPLEMENT] (Unknown Strength) ORAL Every other day Turmeric Root Extract (Turmeric) (Unknown Strength) CAPSULE ORAL Every other day Docusate Sodium (Docusate Sodium) 100 MG CAPSULE ORAL TWICE DAILY Days = 7 Polyethylene Glycol 3350 (Miralax) 17 GRAM/DOSE POWDER ORAL DAILY as needed for CONSTIPATION Days = 7 Sennosides (Senna) 8.6 MG TABLET ORAL Every other day Hydromorphone HCl (Dilaudid) 2 MG TABLET ORAL Q4H as needed for MODERATE PAIN Hydromorphone HCl (Dilaudid) 4 MG TABLET ORAL Q4H as needed for SEVERE PAIN Continue taking these medications: Ergocalciferol (Vitamin D2) (Vitamin D2) 50,000 UNIT CAPSULE 1 Capsule ORAL EVERY SUNDAY Qty = 6 Magnesium Oxide (Magnesium) (Unknown Strength) CAPSULE Unknown Dose ORAL Every other day Celecoxib (Celebrex) 200 MG CAPSULE 400 Milligram ORAL DAILY Days = 20 Comments: last given 11/19/17 @ 1045 Nicotine (Nicotine Patch) 7 MG/24 HOUR PATCH.TD24 1 Patch TRANSDERM DAILY Calcium Carbonate (Calcium) 500 MG CALCIUM (1,250 MG) TAB.CHEW 1 Tablet ORAL Q8H as needed for GI Apixaban (Eliquis) 2.5 MG TABLET 2.5 Milligram ORAL TWICE DAILY Days = 42 Instructions: take for 6weeks This prescription has been renewed Morphine Sulfate (Morphine Sulfate ER) 15 MG TABLET.ER 15 Milligram ORAL TWICE DAILY Qty = 8 This prescription has been renewed Start taking the following new medications: Hydromorphone HCl (Hydromorphone HCl) 2 MG TABLET 2-4 Milligram ORAL EVERY 4-6 HOURS as needed for PAIN Qty = 30 No Refills Docusate Sodium (Docusate Sodium) 100 MG CAPSULE 100 Milligram ORAL TWICE DAILY as needed for CONSTIPATION Qty = 30 No Refills Polyethylene Glycol 3350 (Miralax) 17 GRAM/DOSE POWDER 17 Gram ORAL DAILY as needed for CONSTIPATION Qty = 7 No Refills Vancomycin/0.9 % Sod Chloride (Vanco 1.5 Gm/150 Ml-0.9% NaCl) 1.5 GRAM/150 ML PLAST..BAG 1,500 Milligram INTRAVEN EVERY 12 HOURS Days = 36 No Refills Instructions: STOP DATE: 01/08/18 Rifampin (Rifadin) 300 MG CAPSULE 450 Milligram ORAL EVERY 12 HOURS Days = 127 No Refills Instructions: STOP DATE: 04/09/2018 Cefazolin Sodium in 0.9 % NaCl (Cefazolin 2 G/100 Ml-0.9% NaCl) 2 GRAM/100 ML PLAST..BAG 2,000 Milligram INTRAVEN EVERY 8 HOURS Days = 36 No Refills Instructions: STOP DATE: 01/08/2018 Sulfamethoxazole/Trimethoprim (Bactrim Ds Tablet) 800 MG-160 MG TABLET 1 Tablet ORAL TWICE DAILY Days = 91 No Refills Instructions: START DATE: 01/09/2018 STOP DATE: 04/10/2018
[2017-12-03 15:43] VITALS: BP 150/56
== END 2017-12-03 17:42 | DRG 301 ==
LOC: ERH 16:29 → 2NB 19:09 → ERHI 19:09 → ENRESERV 19:42 → ENTRNSPT 20:15 → EDTRNSPT 20:50 → 2NB 21:25 → CMPTRNSPT 21:32 → ENTRNSPT 11-26 21:29 → EDTRNSPT 11-26 21:39 → EDTRNSPTSTS 11-26 21:39 → CMPTRNSPT 11-26 22:01 → 2NB 12-03 17:42
PROVIDERS: Nurse Practitioner; Physician Assistant; Physician Assistant Medical; Physician Assistant Surgical
PROC: 0SRS03Z Replacement of Left Hip Joint, Femoral Surface with Ceramic Synthetic Substitute, Open Approach (ICD-10-PCS; principal; 2017-11-26)
PROC: 0SPS0JZ Removal of Synthetic Substitute from Left Hip Joint, Femoral Surface, Open Approach (ICD-10-PCS; 2017-11-26)
PROC: 0SPB09Z Removal of Liner from Left Hip Joint, Open Approach (ICD-10-PCS; 2017-11-26)
PROC: 0SUE09Z Supplement Left Hip Joint, Acetabular Surface with Liner, Open Approach (ICD-10-PCS; 2017-11-26)
PROC: 02HV33Z Insertion of Infusion Device into Superior Vena Cava, Percutaneous Approach (ICD-10-PCS; 2017-11-30)
DX: T84.54XA Infection and inflammatory reaction due to internal left knee prosthesis, initial encounter (principal); Z68.41 Body mass index [BMI] 40.0-44.9, adult; M96.840 Postprocedural hematoma of a musculoskeletal structure following a musculoskeletal system procedure; M85.80 Other specified disorders of bone density and structure, unspecified site; E66.01 Morbid (severe) obesity due to excess calories; B96.1 Klebsiella pneumoniae [K. pneumoniae] as the cause of diseases classified elsewhere; Z88.0 Allergy status to penicillin; I25.10 Atherosclerotic heart disease of native coronary artery without angina pectoris; Z86.19 Personal history of other infectious and parasitic diseases; Z85.41 Personal history of malignant neoplasm of cervix uteri; R07.9 Chest pain, unspecified; G47.33 Obstructive sleep apnea (adult) (pediatric); Z87.442 Personal history of urinary calculi; E04.1 Nontoxic single thyroid nodule; Z96.642 Presence of left artificial hip joint; Y83.8 Other surgical procedures as the cause of abnormal reaction of the patient, or of later complication, without mention of misadventure at the time of the procedure; B95.7 Other staphylococcus as the cause of diseases classified elsewhere
CPT/HCPCS: 2NBSP; 87070; 87075; 87184; 36592; 71045; 72170; 73502-LT; 81003; 82436; 87040; 87071; 87147; 93005; 93010; 96374; 96375; 97110-GO; 97116-GO; 97161-GP; C1769; J0131; J0744; J2405; J2997; J3370; J7040; J7042; J7060